=== PATIENT | female | born 1945 | race Caucasian/White ===

== ENCOUNTER 2019-11-06 06:59 | Outpatient (CLI) | payer MEDICARE, SELFPAY ==
--- NOTE | 2019-11-06 | USCV_ITS ---
Eldia Galvan Age: 74 Gender: F : 1945 Exam Date: 11/06/2019 07:17 Ordering Phys: Chelita Miller MD Technologist: Laurie Maya [place] [facility] [place]: SOB WITH LEG SWELLING BP: / HR: 93 Rhythm: Sinus Technical Quality: Very poor MEASUREMENTS (Male / Female) Normal Values 2D ECHO LV Diastolic Diameter PLAX 3.8 cm 4.2 - 5.9 / 3.9 - 5.3 cm LV Systolic Diameter PLAX 2.5 cm LV Chamber Size 3.4 cm IVS Diastolic Thickness 1.5 cm 0.6 - 1.0 / 0.6 - 0.9 cm IVS Systolic Thickness 1.7 cm LVPW Diastolic Thickness 1.5 cm 0.6 - 1.0 / 0.6 - 0.9 cm LVPW Systolic Thickness 1.9 cm RV Chamber Size 2.8 cm LVOT Diameter 2.0 cm LV Ejection Fraction 2D Teich 63.1 % LV Ejection Fraction MOD 2C 74.9 % LV Ejection Fraction 2C AL 75.5 % LA Diameter 3.8 cm LA Width 3.0 cm LA Height 4.3 cm RA Width 2.8 cm RA Height 4.2 cm Aorta at Sinotubular Diameter 2.5 cm M-MODE LV Diastolic Diameter MM 5.2 cm 4.2 - 5.9 / 3.9 - 5.3 cm LV Systolic Diameter MM 3.6 cm LV Ejection Fraction MM Teich 59.4 % IVS Diastolic Thickness MM 1.2 cm 0.6 - 1.0 / 0.6 - 0.9 cm IVS Systolic Thickness MM 1.8 cm LVPW Diastolic Thickness MM 1.3 cm 0.6 - 1.0 / 0.6 - 0.9 cm LVPW Systolic Thickness MM 1.8 cm RV Diastolic Diameter MM 1.7 cm Aortic Annulus Diameter 3.2 cm LA Ao Ratio MM 1.2 MV E Point Septal Separation 0.7 cm DOPPLER AV Peak Velocity 160.0 cm/s LVOT Peak Velocity 132.0 cm/s AV Area Cont Eq vti 3.4 cm squared AV Area Cont Eq pk 2.6 cm squared MV Area PHT 2.9 cm squared Mitral E to A Ratio 0.9 MV E' Velocity 6.0 cm/s Mitral E to MV E' Ratio 12.6 Mitral E to LV E' Lateral Ratio 12.6 Mitral E to LV E' Septal Ratio 12.6 TR Peak Velocity 177.2 cm/s TR Peak Gradient 12.6 mmHg TR Mean Velocity 137.7 cm/s TR Mean Gradient 8.5 mmHg TR Velocity Time Integral 37.9 cm TV Peak E Velocity 53.0 cm/s PV Peak Velocity 88.0 cm/s RV Acceleration Time 0.2 s RV Ejection Time 0.3 s RV AcT/ET 0.4 FINDINGS Left Ventricle Normal left ventricular cavity size. Normal left ventricular systolic function. No regional wall motion abnormalities. Left ventricular ejection fraction is estimated at 59 %. Grade II/IV diastolic dysfunction, moderately elevated filling pressures. Right Ventricle The right ventricle is normal in size and function. RVSP could not be calculated due to incomplete tricuspid regurgitation velocity profile. Right Atrium The right atrium is normal in size. Left Atrium The left atrium is normal in size. Mitral Valve Structurally normal mitral valve without significant stenosis or prolapse. There is no mitral regurgitation. Aortic Valve Moderate aortic valve calcification. No aortic valve stenosis. No aortic valve regurgitation. Tricuspid Valve Structurally normal tricuspid valve without significant stenosis or regurgitation. Pulmonic Valve Structurally normal pulmonic valve without significant stenosis. There is no pulmonic regurgitation. Pericardium Normal pericardium without effusion. Aorta Normal ascending aorta dimension. CONCLUSIONS 1-Normal left ventricular cavity size. Normal left ventricular systolic function. No regional wall motion abnormalities. Left ventricular ejection fraction is estimated at 59 %. Grade II/IV diastolic dysfunction, moderately elevated filling pressures. 2-There is no pericardial effusion. 3-No significant valve abnormalities. 4-The right ventricle is normal in size and function. RVSP could not be calculated due to incomplete tricuspid regurgitation velocity profile. 5-No significant change since the prior echocardiogram study of 06/11/2016. Dolores Miller MD (Electronically Signed) Final Date: 06 November 2019 20:37 S
== END 2019-11-06 07:00 | disposition home or self-care (01) ==
LOC: US 07:00
PROVIDERS: PCP Internal Medicine; Visit Provider Internal Medicine
DX: R06.00 Dyspnea, unspecified (principal); I51.81 Takotsubo syndrome
CPT/HCPCS: 93306

== ENCOUNTER 2019-11-29 15:16 | Outpatient (CLI) | payer MEDICARE, SELFPAY ==
--- NOTE | 2019-11-29 15:26 | XR_ITS ---
WS: [id number] EXAM: Chest: PA and lateral DATE OF EXAMINATION: 11/29/2019, 1534 hours COMPARISON: Chest x-ray from 02/07/2018 HISTORY: Patient is 74 years old with atraumatic chest pain, shortness of breath and slight cough. FINDINGS: The heart size is normal. The mediastinal contours are normal. Pulmonary vascularity is within norm al limits. Chronic lung changes are demonstrated. Lungs are clear of consolidation. No effusion, or p neumothorax. Bone density is slightly decreased. Scattered degenerative changes are seen in the spin e. Progressive collapse of the disc space in the mid thoracic spine has occurred in the interim. XR/XR chest 2V* [id number] IMPRESSION: Chronic lung changes. No acute pulmonary disease. Progressive collapse of the disc space in the mid to lower thoracic spine.
== END 2019-11-29 15:17 | disposition home or self-care (01) ==
LOC: RAD 15:19
PROVIDERS: PCP Internal Medicine; Visit Provider Nurse Practitioner Family
DX: R06.00 Dyspnea, unspecified (principal); R07.9 Chest pain, unspecified; R06.02 Shortness of breath; R05 Cough
CPT/HCPCS: 71046

== ENCOUNTER 2019-11-30 13:10 | Outpatient (CLI) | payer MEDICARE, SELFPAY ==
--- NOTE | 2019-11-30 13:18 | MM_ITS ---
WS: [id number] BILATERAL SCREENING DIGITAL MAMMOGRAM WITH CAD HISTORY: SCREEN COMPARISON: 11/02/2018 and 10/27/2017 Bilateral CC and MLO views submitted. Computer aided detection analyzed. Breast composition: There are scattered areas of fibroglandular density. No suspicious masses, microc alcifications or architectural distortion. 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 MM/[place] [id number] IMPRESSION: BI-RADS: 2-Benign FOLLOW UP: 1 Year Follow-up
== END 2019-11-30 13:11 | disposition home or self-care (01) ==
PROVIDERS: PCP Internal Medicine; Visit Provider Internal Medicine
DX: Z12.31 Encounter for screening mammogram for malignant neoplasm of breast (principal)
CPT/HCPCS: 77067

== ENCOUNTER → 2019-12-15 16:40 | Outpatient (BNVA) | payer MEDICARE, SELFPAY | PROVIDERS: PCP Internal Medicine; Visit Provider Nurse Practitioner Family | DX: Z11.59 Encounter for screening for other viral diseases (principal) | CPT/HCPCS: 87635 ==

== ENCOUNTER 2019-12-18 15:48 | Outpatient (CLI) | payer MEDICARE, SELFPAY ==
--- NOTE | 2019-12-18 16:11 | XR_ITS ---
WS: [id number] Bone mineral density performed on a [employer], 12/18/2019 Clinical data: ASYMPTOMATIC POSTMENOPAUSAL STATUS Findings: The first 4 lumbar vertebral bodies demonstrated the bone mineral density of 1.347 g/cm2 for a young adult T score of 1.4. Measurement of the left radius and ulna reveals a bone mineral density of 0.915 g/sq cm with a young adult T score of 0.4. XR/XR DEXA axial skeleton* [id number] Impression: 1. Normal bone mineral density of the lumbar spine. 2. Normal bone mineral density of the left radius and ulna.
== END 2019-12-18 15:49 | disposition home or self-care (01) ==
LOC: RADWPI 15:53
PROVIDERS: PCP Internal Medicine; Visit Provider Internal Medicine
DX: Z78.0 Asymptomatic menopausal state (principal)
CPT/HCPCS: 77080

== ENCOUNTER 2019-12-20 06:57 | Outpatient (CLI) | payer MEDICARE, SELFPAY ==
--- NOTE | 2019-12-20 07:42 | PFTS_ITS ---
Date of Study:12/20/19 Date of Dictation: MECHANICS: Forced vital capacity (FVC) is . Forced expiratory volume in one second (FEV1) is . FEV1/FVC is . FLOW VOLUME LOOP: . LUNG VOLUMES: Total lung capacity (TLC) is . Residual volume (RV) is . DIFFUSING CAPACITY FOR CARBON MONOXIDE: . INTERPRETATION: The pulmonary function tests are . mechanics and lung volumes. Gas exchange (DLCO) is . MTDD
--- NOTE | 2019-12-20 09:53 | PFTS_ITS ---
Date of Study:12/20/19 Date of Dictation: 12/21/2019 MECHANICS: Forced vital capacity (FVC) is Reduced Forced expiratory volume in one second (FEV1) is reduced FEV1/FVC is normal No significant bronchodilator response FLOW VOLUME LOOP: Normal . LUNG VOLUMES: Not measured DIFFUSING CAPACITY FOR CARBON MONOXIDE: Not measured . INTERPRETATION: The pulmonary function tests are consistent with restrictive pattern. MTDD
== END 2019-12-20 06:58 | disposition home or self-care (01) ==
PROVIDERS: PCP Internal Medicine; Visit Provider Nurse Practitioner Family
DX: R06.00 Dyspnea, unspecified (principal)
CPT/HCPCS: 94060; J7611

== ENCOUNTER 2021-07-17 06:01 | Outpatient (CLI) | payer MEDICARE, SELFPAY ==
[2021-07-17 06:19] LABS: Basophils % 0.4 %; Eosinophils # 0.2 10^3/uL (0.0-0.8); Eosinophils % 2.3 %; Hematocrit 40.2 % (37.0-47.0); Lymphocytes # 2.9 10^3/uL (0.8-4.8); Lymphocytes % 34.5 %; Mean Corpuscular HGB Conc 32.3 g/dL (30.0-36.0); Mean Corpuscular Hemoglobin 29.5 pg (28.0-34.0); Mean Corpuscular Volume 91.4 fl (81-99); Mean Platelet Volume 9.7 fL (7.4-10.4); Monocytes # 0.6 10^3/uL (0.2-0.9); Monocytes % 7.1 %; Neutrophils # 4.61 10^3/uL (1.8-7.7); Neutrophils % 55.1 %; Nucleated Red Blood Cells % 0 %; Platelet Count 331 10^3/cmm (130-400); Red Cell Distribution Width 12.4 % (12.1-15.1); White Blood Count 8.4 10^3/uL (4.0-10.0)
== END 2021-07-17 06:02 | disposition home or self-care (01) ==
PROVIDERS: PCP Internal Medicine; Visit Provider Internal Medicine
DX: Z79.899 Other long term (current) drug therapy (principal)
CPT/HCPCS: 85025

== ENCOUNTER 2022-03-22 03:44 | Emergency (ER) | payer MEDICARE, SELFPAY ==
[2022-03-22 03:48] VITALS: BMI 34.7
[2022-03-22 04:01] VITALS: BP 133/82; PULSE 67; RESP 16; TEMP 37.1; O2SAT 95
--- NOTE | 2022-03-22 05:38 | XRR_ITS ---
PROCEDURE INFORMATION: Exam: XR Lumbosacral Spine Exam date and time: 03/22/2022 5:51 AM Age: 76 years old Clinical indication: Injury or trauma; Fall; Blunt trauma (contusions or hematomas); Additional info: Fall back pain TECHNIQUE: Imaging protocol: Radiologic exam of the lumbosacral spine. Views: 2 or 3 views. COMPARISON: CR XR hip LT 2-3V wo/w pel* [id number] 12/30/2018 8:38 AM FINDINGS: Bones/joints: The lumbar spine maintains a normal lordotic curvature. Mild grade 1 anterolisthesis of L4 on L5. The vertebral bodies maintain normal height. Mild mid and posterior superior endplate deformity at L3, may be degenerative. The intervertebral discs maintain normal height. Lower lumbar facet arthropathy. Minimal anterior osteophyte formation noted. Soft tissues: Prominent atherosclerotic disease. XR/XR lumbar spine 2-3V* [id number] IMPRESSION: 1. Mild mid and posterior superior endplate deformity at L3, may be degenerative. 2. The vertebral bodies maintain normal height.
[2022-03-22] MEDS: oxyCODONE-APAP 5-325 mg Tablet 2 TAB PO (05:43)
--- NOTE | 2022-03-22 05:50 | ED_ITS ---
HPI - Fall General: Chief Complaint: Fall Stated Complaint: FALL Time Seen by Provider: 03/22/22 04:53 Source: patient History of Present Illness: 76-year-old assisted patient who fell 1 week ago. She injured her low back/upper sacral area. She has been experiencing pain in that area that radiates down her left thigh. no numbness to the groin, no sudden change in bowel or bladder function. complaint: fall Onset (ago): day(s) Fall from: standing Fall witnessed: yes, by living facility staff Place fall occurred: assisted/SNF Loss of consciousness: None Prolonged down time: no Symptoms prior to fall: none Context: tripped/slipped Location of injury: back Associated symptoms-after fall: Reports difficulty walking; Denies abdominal pain, chest pain, confusion or short of breath Review of Systems Const: Denies: fever(s) Card: Denies: chest pain Resp: Denies: dyspnea GI: Denies: abdominal pain or vomiting : Denies: flank pain or difficulty voiding (nothing new) Neuro: Reports: difficulty walking; Denies: confusion Physical Exam Const: COMMON NORMALS: no acute distress GENERAL APPEARANCE: cooperative; not ill appearing HENMT: COMMON NORMALS: normocephalic and atraumatic HEAD & SCALP: normocephalic and atraumatic Eye: COMMON NORMALS: Equal, round and reactive pupils present and EOMs intact bilaterally PUPIL: Yes Equal, round and reactive pupils present Chest: CHEST: Yes Symmetrical chest wall rise Resp: COMMON NORMALS: normal respiratory effort, No use of accessory muscles and clear to auscultation bilaterally AUSCULTATION: clear to auscultation bilaterally Cardio: COMMON NORMALS: regular rate RATE: regular rate GI: COMMON NORMALS: Normal to inspection, nondistended, normoactive bowel sounds present Back/Pelvis: LUMBAR SPINE/LOWER BACK: Yes lumbar spinal tenderness and Yes paraspinal muscle tenderness Neuro: MARCIAL COMA SCALE: document GCS findings Marcial coma scale eye opening: Spontaneous Garvin coma scale verbal response: Orientated Marcial coma scale motor response: Obey commands Marcial coma scale total score: 15 Course Vital Signs: Vital signs: Vital Signs Temperature 98.8 F 03/22/22 04:01 Pulse Rate 70 03/22/22 06:46 Respiratory Rate 16 03/22/22 06:46 Blood Pressure 145/66 03/22/22 06:46 Pulse Oximetry 92 01/08/23 06:46 Oxygen Delivery Me thod 03/22/22 04:01 MDM - Fall Medical Decision Making No acute fracture noted on xray. She has symptoms of lumbar radiculopathy on exam. She will be treated accordingly. Return for new or worsening symptoms. Lab Data Radiology Impressions Lumbar Spine X-Ray 03/22/22 05:38 IMPRESSION: 1. Mild mid and posterior superior endplate deformity at L3, may be degenerative. 2. The vertebral bodies maintain normal height. Discharge Plan Discharge Patient Disposition: Home Clinical Impression: Lumbar contusion, Acute lumbar radiculopathy Condition: Stable Prescriptions: New hydrocodone-acetaminophen 5-325 mg tablet 1 tab PO Q8H PRN (Reason: pain) Qty: 7 0RF Medrol (José Miguel) 4 mg tablets,dose pack See Rx Instructions .ROUTE .COMPLEX Qty: 21 0RF Rx Instructions: orally per package directions Discharge Orders: Discharge ED (Routine); Ordered 03/22/22 Ordered By: Fabio Vitale Referrals: Chelita Miller MD [Primary Care Provider] - 4-7 days Patient Instructions: Lumbar Radiculopathy (ED), Opioid Safety, Pain Management Activity Restrictions/Additional Instructions: See your doctor next week for follow-up. Medications as directed. Coding Level of Care Code ED Sales Representative [employer] for Radha Javed
[2022-03-22 06:46] VITALS: BP 145/66; PULSE 70; RESP 16; O2SAT 92
== END 2022-03-22 07:05 | disposition home or self-care (01) ==
PROVIDERS: Emergency Provider Emergency Medicine; PCP Internal Medicine
DX: M54.16 Radiculopathy, lumbar region (principal); S30.0XXA Contusion of lower back and pelvis, initial encounter; W19.XXXA Unspecified fall, initial encounter
CPT/HCPCS: 72100; 99283

== ENCOUNTER 2024-09-24 12:31 | Emergency (ER) | payer MEDICARE, MEDICAID, SELFPAY ==
[2024-09-24 12:48] VITALS: BP 138/75; PULSE 74; RESP 28; TEMP 36.7; O2SAT 92; BMI 37.5
[2024-09-24 13:07] VITALS: PULSE 75; RESP 24; O2SAT 93
--- NOTE | 2024-09-24 13:10 | ED_ITS ---
HPI - Altered Mental Status 2 General: Chief Complaint: Altered Mental Status Stated Complaint: ams Time Seen by Provider: 09/24/24 12:40 History of Present Illness: 79-year-old female with a history of dem entia, Insulin-dependent diabetes, hypertension, hyperlipidemia, depression, hypothyroidism, and GERD who was sent to the emergency room by ambulance from a long-term with concern for change in her mental status. She has fairly advanced dementia at baseline but today she started hallucinating. They are requesting a urinalysis. She has no complaints and is pleasant on presentation. Related Data Previous Rx's ?Medication ?Instructions ?Recorded hydrocodone 5 mg-acetaminophen 325 1 tab PO Q8H PRN pa in #7 tabs 03/22/22 mg tablet methylprednisolone 4 mg tablets in See Rx Instructions PO .COMPLEX 03/22/22 a dose pack (Medrol (José Miguel)) #21 ea cefdinir 300 mg capsule 300 mg PO BID 7 days #14 cap s 09/24/24 Allergies Allergy/AdvReac Type Severity Reaction Status Date / Time Penicillins Allergy Unknown Verified 09/24/24 13:08 Review of Systems 2 General: Reports: ROS unobtainable due to medical condition Physical Exam 2 Narrative: General: Alert, no acute distress. Skin: Warm, dry. Head: Normocephalic, atraumatic. Neck: Supple, trachea midline. Eye: Extraocular movements are intact. Ears, nose, mouth and throat: mucosa moist. Cardiovascular: Regular, Normal peripheral perfusion. Respiratory: Lungs are clear to auscultation, respirations are non-labored, breath sounds are equal, Symmetrical chest wall expansion. Gastrointestinal: Soft, Nontender, Non distended Musculoskeletal: Normal ROM, no deformity. Neurological: Alert, pleasantly confused, No focal neurological deficit observed. Psychiatric: Pleasant Course 2 Vital Signs: Vital signs: Vital Signs Temperature 98.1 F 09/24/24 12:48 Pulse Rate 91 09/24/24 14:07 Respiratory Rate 22 H 09/24/24 14:07 Blood Pressure 147/87 09/24/24 14:07 Pulse Oximetry 93 09/24/24 14:07 Oxygen Delivery Me thod Room Air 09/24/24 12:48 MDM - Altered Mental Status Medical Decision Making Medical decision making: Differential diagnosis including but not limited to and based on the above HPI, review of systems and physical exam: In this patient with altered mental status: Stroke. Hypoglycemia. Metabolic encephalopathy. Infections such as pneumonia, urinary tract infection, Covid-19, Influenza. Electrolyte abnormalities such as hypernatremia. Renal failure / uremia. Hepatic encephalopathy. Hypoxemia. Hypercapnic respiratory failure. Psychosis. Drug or alcohol intoxication. Medication overdose. Orders placed to evaluate differential diagnosis based on the above differential, HPI and physical exam Lab Review: Laboratory results were reviewed and interpreted by myself the emergency room physician. No leukocytosis. No anemia. Mild elevation BUN/creatinine 26 and 1.1. Urinalysis is positive for infection with 4+ bacteria. 21-50 whites. I reviewed the patient's medical record. 79-year-old female with a history of dementia, Insulin-dependent diabetes, hypertension, hyperlipidemia, depression, hypothyroidism, and GERD Reexamination: Patient remained stable. No increased work of breathing. No altered mental status. No focal motor deficits. Assessment and plan: Urinary tract infection Encephalopathy ? Rocephin in the emergency room - Discharged home - Discussed plan with patient. Answered any questions. - Evaluation and treatment of this problem were appropriate in the emergency setting. Lab Data 09/24/24 13:22 09/24/24 13:22 Laboratory Results WBC 8.57 10^3/uL (3.29-11.43) 09/24/24 13:22 RBC 3.96 10^6/uL (3.85-5.65) 09/24/24 13:22 Hgb 11.00 g/dL (11.27-16.99) L 09/24/24 13:22 Hct 35.6 % (36-47) L 09/24/24 13:22 MCV 89.9 fl (85-98) 09/24/24 13:22 MCH 27.8 pg (27-33) 09/24/24 13:22 MCHC 30.9 g/dL (30-55) 09/24/24 13:22 RDW 12.9 % (12.1-15.1) 09/24/24 13:22 Plt Count 323 10^3/cmm (157-399) 09/24/24 13:22 MPV 9.2 fL (7.4-10.4) 09/24/24 13:22 Neut % (Auto) 61.5 % 09/24/24 13:22 Lymph % (Auto) 27.1 % 09/24/24 13:22 [place] % (Auto) 6.9 % 09/24/24 13:22 Eos % (Auto) 3.7 % 09/24/24 13:22 Baso % (Auto) 0.4 % 09/24/24 13:22 Neut # (Auto) 5.28 10^3/uL (1.8-7.7) 09/24/24 13:22 Lymph # (Auto) 2.3 10^3/uL (0.8-4.8) 09/24/24 13:22 [place] # (Auto) 0.6 10^3/uL (0.2-0.9) 09/24/24 13:22 Eos # (Auto) 0.3 10^3/uL (0.0-0.8) 09/24/24 13:22 Baso # (Auto) 0.0 10^3/uL (0.0-0.1) 09/24/24 13:22 Nucleated RBC % (auto) 0 % 09/24/24 13:22 Nucleated RBCs # 0.0 /100WBC 09/24/24 13:22 Sodium 139 mmol/L (136-145) 09/24/24 13:22 Potassium 4.4 mmol/L (3.5-5.1) 09/24/24 13:22 Chloride 101 mmol/L (98-107) 09/24/24 13:22 Carbon Dioxide 24 mmol/L (22-29) 09/24/24 13:22 Anion Gap 18.4 (5-19) 09/24/24 13:22 BUN 26 mg/dL (8-23) H 09/24/24 13:22 Creatinine 1.1 mg/dL (0.5-0.9) H 09/24/24 13:22 GFR Calculation Not Reportable 09/24/24 13:22 Glucose 124 mg/dL (65-115) H 09/24/24 13:22 Calculated Osmolality 294 mOsm/kg (285-295) 09/24/24 13:22 Lactic Acid 2.1 mmol/L (0.5-2.2) 09/24/24 13:23 Calcium 8.9 mg/dL (8.5-10.5) 09/24/24 13:22 Total Bilirubin 0.2 mg/dL (0.15-1.2) 09/24/24 13:22 AST 14 U/L (0-32) 09/24/24 13:22 ALT 13 U/L (0-33) 09/24/24 13:22 Alkaline Phosphatase 109 U/L (35-105) H 09/24/24 13:22 Total Protein 7.3 g/dL (6.6-8.7) 09/24/24 13:22 Albumin 3.6 g/dL (3.5-5.2) 09/24/24 13:22 Globulin 3.7 g/dL (1.3-4.6) 09/24/24 13:22 Urine Color Yellow (Yellow) 09/24/24 13:50 Urine Appearance Cloudy (CLEAR) A 09/24/24 13:50 Urine pH 5.0 (5-7) 09/24/24 13:50 Ur Specific [place] 1.022 (1.005-1.030) 09/24/24 13:50 Urine Protein 1+ (Negative) A 09/24/24 13:50 Urine Glucose (UA) Negative (Normal) 09/24/24 13:50 Urine Ketones Trace (Negative) 09/24/24 13:50 Urine Blood Negative (Negative) 09/24/24 13:50 Urine Nitrate Negative (Negative) 09/24/24 13:50 Urine Bilirubin Negative (Negative) 09/24/24 13:50 Urine Urobilinogen 0.2 mg/dL (Negative) 09/24/24 13:50 Ur Leukocyte Esterase 2+ (Negative) A 09/24/24 13:50 Urine RBC 0-2 /hpf (0-2) 09/24/24 13:50 Urine WBC 21-50 /hpf (0-5) H 09/24/24 13:50 Ur Squamous Epith Cells 11-20 /hpf (0-5) H 09/24/24 13:50 Amorphous Sediment Not Reportable 09/24/24 13:50 Urine Bacteria 4+ /hpf (NONE) H 09/24/24 13:50 Hyaline Casts 2.46 /lpf 09/24/24 13:50 No radiology studies performed this visit Discharge Plan Discharge Patient Disposition: Home Clinical Impression: Urinary tract infection, Delirium due to general medical condition Condition: Stable Prescriptions: New cefdinir 300 mg capsule 300 mg PO BID 7 Days Qty: 14 0RF No Action hydrocodone-acetaminophen 5-325 mg tablet 1 tab PO Q8H PRN (Reason: pain) Qty: 7 0RF Medrol (José Miguel) 4 mg tablets,dose pack See Rx Instructions .ROUTE .COMPLEX Qty: 21 0RF Rx Instructions: orally per package directions Discharge Orders: Discharge ED (Routine); Ordered 09/24/24 Ordered By: Libertad Andres Referrals: Chelita Miller MD [Primary Care Provider, Internal Medicine] Discharge Diet: Usual diet Discharge Activity: Increase activity as tolerated Patient Instructions: Altered Mental Status (ED), Urinary Tract Infection in Older Adults (ED), Opioid Safety, Pain Management, Patient Portal & Alexandrea Instructions Activity Restrictions/Additional Instructions: Thank you for choosing [facility] for your healthcare needs today. You have been screened and evaluated and felt safe for discharge. Health conditions do change or evolve sometimes and as such it is important that you follow up with your Primary Doctor to be re checked, 3-5 days is a general good time frame for follow up. You are always welcome to return to the ED for re assessment if your symptoms are worsening or you have new concerns Print Language: Somali Coding Level of Care Code ED [employer]er for Radha Javed
--- NOTE | 2024-09-24 13:37 | PC.PHAR ---
Addendum entered by Allison Alfaro 09/24/24 14:45: Phoned at 2:30 and 2:45 to revisit med list. Original Note: Pt is from [facility]. Paperwork sent was face sheet and dnr but no med list. Phoned and left message 1:38pm
[2024-09-24 13:39] LABS: Hematocrit 35.6 % (36-47); Hemoglobin 11.00 g/dL (11.27-16.99); Mean Corpuscular HGB Conc 30.9 g/dL (30-55); Mean Corpuscular Hemoglobin 27.8 pg (27-33); Mean Corpuscular Volume 89.9 fl (85-98); Nucleated Red Blood Cells % 0 %; Platelet Count 323 10^3/cmm (157-399); Red Blood Count 3.96 10^6/uL (3.85-5.65); White Blood Count 8.57 10^3/uL (3.29-11.43)
[2024-09-24 13:51] LABS: Lactic Sepsis W/Reflex 2.1 mmol/L (0.5-2.2)
[2024-09-24 13:53] LABS: Alanine Aminotransferase 13 U/L (0-33); Albumin Level 3.6 g/dL (3.5-5.2); Alkaline Phosphatase 109 U/L (35-105); Anion Gap 18.4 (5-19); Aspartate Amino Transferase 14 U/L (0-32); Blood Urea Nitrogen 26 mg/dL (8-23); Calcium 8.9 mg/dL (8.5-10.5); Carbon Dioxide 24 mmol/L (22-29); Chloride 101 mmol/L (98-107); Creatinine Clr Calc Pharmacy 52.7042; Globulin 3.7 g/dL (1.3-4.6); Glucose 124 mg/dL (65-115); Osmolality Calculated 294 mOsm/kg (285-295); Potassium 4.4 mmol/L (3.5-5.1); Sodium 139 mmol/L (136-145); Total Protein 7.3 g/dL (6.6-8.7)
[2024-09-24 13:58] LABS: Glucose Urine UA Negative (Normal); Nitrate Urine Negative (Negative); Specific Gravity, Urine 1.022 (1.005-1.030)
[2024-09-24 14:07] VITALS: BP 147/87; PULSE 91; RESP 22; O2SAT 93
[2024-09-24 15:22] LABS: Reflex Lactate Order REFLEX LACTIC ORDERD
[2024-09-24 16:00] VITALS: BP 132/79; PULSE 85; RESP 18; O2SAT 95
[2024-09-24] MEDS: cefTRIAXone 1,000 mg SDV 1000 MG IVP (16:03)
== END 2024-09-24 16:36 | disposition home or self-care (01) ==
PROVIDERS: Emergency Provider Emergency Medicine; PCP Internal Medicine
DX: N39.0 Urinary tract infection, site not specified (principal); R41.0 Disorientation, unspecified; E11.9 Type 2 diabetes mellitus without complications; E78.5 Hyperlipidemia, unspecified; I10 Essential (primary) hypertension
CPT/HCPCS: 36415; 36416; 80053; 81001; 82962; 83605; 85025; 87040; 87150; 87205; 96374; 99284; J0696

== ENCOUNTER 2024-11-11 10:30 | Emergency (ER) | payer MEDICARE, MEDICAID, SELFPAY ==
[2024-11-11 10:31] VITALS: BP 120/67; PULSE 73; RESP 17; TEMP 36.7; O2SAT 95; BMI 40.3
--- NOTE | 2024-11-11 12:57 | W.ED.EYEPROB ---
HPI - Eye Problem General: Chief complaint: Eye Problems Stated complaint: right eye redness Time Seen by Provider: 11/11/24 10:32 Source: patient and family Mode of arrival: wheelchair Limitations: altered mental status (Chronic dementia) History of Present Illness: Patient arrived, has chronic dementia very pleasant but talkative and confused. Sister is with her and provides most of the history. She lives in a alf and reportedly the nurse called them as the right eye suddenly became more inflamed this morning. Patient reportedly had complained of some pain but has not complained of any eye pain at this moment. Vision has remained reported as blurry but patient can still have fair acuity. Concerns the right eye. Related Data Home Medications ?Medication ?Instructions ?Recorded ?Confirmed acetaminophen 325 mg tablet 325 mg PO BID 09/24/24 11/11/24 (Tylenol) acetaminophen 325 mg tablet 650 mg PO Q4H PRN Pain 09/24/24 11/11/24 (Tylenol) bisacodyl 10 mg rectal suppository 10 mg DE DAILY PRN Constipation 09/24/24 11/11/24 (Dulcolax (bisacodyl)) brimonidine 0.1 % eye drops 1 drp ophthalmic (eye) Q8H 09/24/24 11/11/24 (Alphagan P) Held on 11/11/24. Instructions: Resume on 11/14/24. clopidogrel 75 mg tablet (Plavix) 75 mg PO DAILY 09/24/24 11/11/24 dextran 70-hypromellose eye drops 1 drp ophthalmic (eye) QID 09/24/24 11/11/24 in a dropperette (Artificial Tears (PF) drops in a dropperette) hydrocodone 5 mg-acetaminophen 325 1 tab PO .Q4-6H PRN pain 09/24/24 11/11/24 mg tablet insulin glargine 100 unit/mL (3 75 unit SUBCUT BEDTIME 09/24/24 11/11/24 mL) subcutaneous pen (Lantus Solostar U-100 Insulin) insulin lispro 100 unit/mL 28 unit SUBCUT TID 09/24/24 11/11/24 subcutaneous solution ketorolac (PF) 0.45 % eye drops in 1 drp ophthalmic (eye) QID 09/24/24 11/11/24 a dropperette latanoprost (PF) 0.005 % eye drops 1 drp ophthalmic (eye) BEDTIME 09/24/24 11/11/24 in a dropperette levothyroxine 50 mcg tablet 50 mcg PO DAILY 09/24/24 11/11/24 (Euthyrox) magnesium hydroxide 400 mg/5 mL 30 ml PO DAILY PRN Constipation 09/24/24 11/11/24 oral suspension (Milk of Magnesia) nystatin 100,000 unit/gram topical See Rx Instructions .Route .COMPLEX 09/24/24 11/11/24 powder ondansetron HCl 4 mg tablet 4 mg PO Q4H PRN Nausea 09/24/24 11/11/24 pantoprazole 40 mg tablet,delayed 40 mg PO DAILY 09/24/24 11/11/24 release phenylephrine 0.25 %-pramoxine 1 1 applic DE BID PRN Hemorrhoids 09/24/24 11/11/24 %-glycerin-wh.petrolatum rectal cream (Preparation H Maximum Strength) polyethylene glycol 3350 17 17 g PO DAILY 09/24/24 11/11/24 gram/dose oral powder (Miralax) sertraline 50 mg tablet (Zoloft) 75 mg PO BEDTIME 09/24/24 11/11/24 sodium chloride 1,000 mg soluble 1,000 mg PO DAILY 09/24/24 11/11/24 tablet erythromycin 5 mg/gram (0.5 %) eye 1 applic ophthalmic (eye) 5XD 11/11/24 11/11/24 ointment (3.5 gram tube) Previous Rx's ?Medication ?Instructions ?Recorded prednisolone acetate 1 % eye 1 drp ophthalmic (eye) Q2H 48 11/11/24 drops,suspension (Pred Forte) hours #5 mL Allergies Allergy/AdvReac Type Severity Reaction Status Date / Time Penicillins Allergy Unknown Verified 09/24/24 13:08 Review of Systems General: Reports: 10 or more systems reviewed and unremarkable except in HPI and below Physical Exam Const: COMMON NORMALS: no acute distress, healthy appearing, alert and well nourished GENERAL APPEARANCE: well kempt and well developed HENMT: COMMON NORMALS: normocephalic, atraumatic, external ears normal and moist oral mucous membranes HEAD & SCALP: normocephalic and atraumatic EXTERNAL EAR: Yes external ears normal Eye: COMMON NORMALS: Equal, round and reactive pupils present, EOMs intact bilaterally and conjunctivae normal CONJUNCTIVA: Yes conjunctivae normal PUPIL: Yes Equal, round and reactive pupils present OTHER: IOP of 18 for right eye Neck/C-Spine: COMMON NORMALS: full ROM, no lymphadenopathy and supple Chest: CHEST: Yes Symmetrical chest wall rise and No Surgical scars present (Chest) Resp: COMMON NORMALS: normal respiratory effort, No retractions, No use of accessory muscles and clear to auscultation bilaterally AUSCULTATION: clear to auscultation bilaterally Cardio: COMMON NORMALS: regular rate and regular rhythm RATE: regular rate RHYTHM: regular rhythm PERIPHERAL PULSES: other (Radial pulses 2+ and symmetric) Neuro: SENSORIUM/ORIENTATION: Yes alert Psych: APPEARANCE: Yes well kempt Skin: COMMON NORMALS: no rashes or lesions noted, no wounds, turgor normal and no jaundice GENERAL SKIN EXAM: no rashes or lesions noted and turgor normal Course ED course: Consultants Rex nash with [facility] has come in and examined the patient with slit-lamp exam. Reports no hypopyon, low concern for endophthalmitis at this time. Strict return precautions have been given to the patient and family member. And he will see her in the clinic tomorrow at 9 AM. Vital Signs: Vital signs: Vital Signs Temperature 98.0 F 11/11/24 10:31 Pulse Rate 73 11/11/24 10:31 Respiratory Rate 17 11/11/24 10:31 Blood Pressure 120/67 11/11/24 10:31 Pulse Oximetry 95 11/11/24 10:31 Oxygen Delivery Me thod Room Air 11/11/24 10:31 MDM - Eye Problem Medical Decision Making Current diagnosis of uveitis with still some possible concern for endophthalmitis. The patient's pain is currently low. Has been seen by ophthalmology here in the ER. Patient will be seen again in the clinic with ophthalmology in the morning. We are increasing the prednisone drops and dropping the bromidine drops for the weekend. No radiology studies performed this visit Discharge Plan Discharge Patient Disposition: Home Clinical Impression: Uveitis Condition: Stable Prescriptions: New prednisolone acetate [Pred Forte] 1 % drops,suspension 1 drp ophthalmic (eye) Q2H 2 Days Qty: 5 0RF Rx Instructions: while awake Continued erythromycin 5 mg/gram (0.5 %) ointment 1 applic ophthalmic (eye) 5XD acetaminophen [Tylenol] 325 mg Tablet 325 mg PO BID acetaminophen [Tylenol] 325 mg Tablet 650 mg PO Q4H PRN (Reason: Pain) ondansetron HCl [Zofran] 4 mg Tablet 4 mg PO Q4H PRN (Reason: Nausea) clopidogrel [Plavix] 75 mg Tablet 75 mg PO DAILY magnesium hydroxide [Milk of Magnesia] 400 mg/5 mL Suspension 30 ml PO DAILY PRN (Reason: Constipation) levothyroxine [Euthyrox] 50 mcg Tablet 50 mcg PO DAILY bisacodyl [Dulcolax (bisacodyl)] 10 mg Suppository 10 mg DE DAILY PRN (Reason: Constipation) pantoprazole 40 mg Tablet,Delayed Release (Dr/Ec) 40 mg PO DAILY nystatin 100,000 unit/gram Powder See Rx Instructions .ROUTE .COMPLEX Rx Instructions: 1 applic topically to bilateral groin areas for redness until healed. insulin lispro 100 unit/mL Solution 28 unit SUBCUT TID polyethylene glycol 3350 [Miralax] 17 gram/dose Powder 17 g PO DAILY sertraline [Zoloft] 50 mg Tablet 75 mg PO BEDTIME Artificial Tears (PF) Dropperette 1 drp OPHTHALMIC (EYE) QID sodium chloride 1,000 mg Tablet,Soluble 1,000 mg PO DAILY Preparation H Maximum Strength 0.25-1 % Cream 1 applic DE BID PRN (Reason: Hemorrhoids) insulin glargine [Lantus Solostar U-100 Insulin] 100 unit/mL (3 mL) Insulin Pen 75 unit SUBCUT BEDTIME ketorolac (PF) 0.45 % Dropperette 1 drp ophthalmic (eye) QID latanoprost (PF) 0.005 % Dropperette 1 drp ophthalmic (eye) BEDTIME hydrocodone-acetaminophen 5-325 mg tablet 1 tab PO .Q4-6H PRN (Reason: pain) Held brimonidine [Alphagan P] 0.1 % Drops 1 drp OPHTHALMIC (EYE) Q8H Hold Instructions: Resume on 11/14/24. Discontinued prednisolone acetate (PF) 1 % Drops,Suspension 1 drp ophthalmic (eye) BID Discharge Orders: Discharge ED (Routine); Ordered 11/11/24 Ordered By: Reginald Barboza Referrals: Chelita Miller MD [Primary Care Provider, Internal Medicine] Patient Instructions: Patient Portal & Alexandrea Instructions Activity Restrictions/Additional Instructions: We are going to hold the bloating drops for the weekend we can restart them on Wednesday. We are going to change the dose of the prednisone drops to every 2 hours for the next 48 hours and then can go back to following the current prescription of prednisolone eyedrops 4 times daily after that until changed by ophthalmology. Follow-up with ophthalmology tomorrow morning as discussed with MENDOZA Castano Print Language: Bahraini Coding Level of Care Code ED Technology Methodology Consultant for Radha Javed
== END 2024-11-11 13:49 | disposition home or self-care (01) ==
PROVIDERS: Emergency Provider Emergency Medicine; PCP Internal Medicine
DX: H20.9 Unspecified iridocyclitis (principal); Z79.4 Long term (current) use of insulin
CPT/HCPCS: 99283

== ENCOUNTER 2024-12-17 13:04 | Emergency (ER) | payer MEDICARE, MEDICAID, SELFPAY ==
[2024-12-17 13:04] VITALS: BP 129/63; PULSE 87; RESP 19; TEMP 37.2; O2SAT 94; BMI 39.4
[2024-12-17 13:24] VITALS: BP 104/44; PULSE 85; O2SAT 97
--- NOTE | 2024-12-17 13:35 | W.ED.RECABL ---
HPI - Recheck/Abnormal Lab/Rx General: Chief Complaint: Recheck/Abnormal Lab/Rx Stated Complaint: hypoglycemia Time Seen by Provider: 12/17/24 13:05 History of Present Illness: Selected Entries 12/17/24 13:04 ED Triage Comment Per EMS they were called for hypogly cemia to [facility], pt 's sugar was c hecked before lunc h it was 101, IA s taff state orders read if BS is over 85 give insulin, gave 30 units of i nsulin they then c hecked sugar after lunch and it was 34, gave 8 mg of g lucagon at [place], she also had snickers . EMS got a FSBS 5 1, gave 30 mg of o ral glucose FSBS w as still 51. Pt is not normally on o xygen, RA sats 90% placed pt on 2 li ters of O2. Pt has been diaphoretic and weak. BS at tr iage 64. Patient presents to ED via EMS. As noted above, she has DM, dementia, CVA, vascular dementia, presenting from jail after she received her short acting insulin, insulin lispro, 30 units, with her blood sugar 101. Patient cannot tell me what she had for lunch, or how much she had to eat. Patient cannot tell me anything other than she is a diabetic. MAP of blood pressure when I am in the room is 70. Will give D5 bolus, and obtain routine labs she is following her blood pressure okay will give good you Related Data Home Medications ?Medication ?Instructions ?Recorded ?Confirmed acetaminophen 325 mg tablet 650 mg PO BID 09/24/24 12/17/24 (Tylenol) acetaminophen 325 mg tablet 650 mg PO Q4H PRN Pain 09/24/24 12/17/24 (Tylenol) bisacodyl 10 mg rectal suppository 10 mg MS DAILY PRN Constipation 09/24/24 12/17/24 (Dulcolax (bisacodyl)) brimonidine 0.1 % eye drops 1 drp ophthalmic (eye) BID 09/24/24 12/17/24 (Alphagan P) Held on 11/11/24. Instructions: Resume on 11/14/24. clopidogrel 75 mg tablet (Plavix) 75 mg PO DAILY 09/24/24 12/17/24 hydrocodone 5 mg-acetaminophen 325 1 tab PO .Q4-6H PRN pain 09/24/24 12/17/24 mg tablet insulin glargine 100 unit/mL (3 72 unit SUBCUT BEDTIME 09/24/24 12/17/24 mL) subcutaneous pen (Lantus Solostar U-100 Insulin) insulin lispro 100 unit/mL 30 unit SUBCUT TID 09/24/24 12/17/24 subcutaneous solution latanoprost (PF) 0.005 % eye drops 1 drp ophthalmic (eye) BEDTIME 09/24/24 12/17/24 in a dropperette levothyroxine 50 mcg tablet 50 mcg PO QAM 09/24/24 12/17/24 (Euthyrox) magnesium hydroxide 400 mg/5 mL 30 ml PO DAILY PRN Constipation 09/24/24 12/17/24 oral suspension (Milk of Magnesia) ondansetron HCl 4 mg tablet 4 mg PO Q4H PRN Nausea 09/24/24 12/17/24 pantoprazole 40 mg tablet,delayed 40 mg PO DAILY 09/24/24 12/17/24 release phenylephrine 0.25 %-pramoxine 1 1 applic MS BID PRN Hemorrhoids 09/24/24 12/17/24 %-glycerin-wh.petrolatum rectal cream (Preparation H Maximum Strength) polyethylene glycol 3350 17 17 g PO DAILY 09/24/24 12/17/24 gram/dose oral powder (Miralax) sertraline 50 mg tablet (Zoloft) 75 mg PO BEDTIME 09/24/24 12/17/24 sodium chloride 1,000 mg soluble 1,000 mg PO DAILY 09/24/24 12/17/24 tablet nitroglycerin 0.4 mg sublingual 0.4 mg sublingual Q5M PRN Chest 12/17/24 12/17/24 tablet (Nitrostat) Pain prednisolone acetate 1 % eye 1 drp ophthalmic (eye) QID 12/17/24 12/17/24 drops,suspension Allergies Allergy/AdvReac Type Severity Reaction Status Date / Time Penicillins Allergy Unknown Verified 09/24/24 13:08 Review of Systems General: Reports: 10 or more systems reviewed and unremarkable except in HPI and below and ROS unobtainable due to medical condition (Advancing dementia in jail) Narrative: Patient is essentially a known historian. History as per jail/EMS Physical Exam Const: COMMON NORMALS: no acute distress, healthy appearing, alert and well nourished GENERAL APPEARANCE: well kempt and well developed HENMT: COMMON NORMALS: normocephalic, atraumatic, external ears normal and moist oral mucous membranes HEAD & SCALP: normocephalic and atraumatic EXTERNAL EAR: Yes external ears normal Eye: COMMON NORMALS: Equal, round and reactive pupils present, EOMs intact bilaterally and conjunctivae normal CONJUNCTIVA: Yes conjunctivae normal PUPIL: Yes Equal, round and reactive pupils present OTHER: IOP of 18 for right eye Neck/C-Spine: COMMON NORMALS: full ROM, no lymphadenopathy and supple Chest: CHEST: Yes Symmetrical chest wall rise and No Surgical scars present (Chest) Resp: COMMON NORMALS: normal respiratory effort, No retractions and No use of accessory muscles AUSCULTATION: bronchial breath sounds Cardio: COMMON NORMALS: regular rate and regular rhythm RATE: regular rate RHYTHM: regular rhythm PERIPHERAL PULSES: other (Radial pulses 2+ and symmetric) GI: COMMON NORMALS: Normal to inspection, nondistended, normoactive bowel sounds present and Soft to palpation PALPATION: Yes Soft to palpation : COMMON NORMALS: Yes no CVA tenderness BLADDER/KIDNEY EXAM: Yes no CVA tenderness Back/Pelvis: COMMON NORMALS: no CVA tenderness Extremity: COMMON NORMALS: normal to inspection, full ROM and capillary refill normal Neuro: SENSORIUM/ORIENTATION: Yes alert Psych: APPEARANCE: Yes well kempt Skin: COMMON NORMALS: no rashes or lesions noted, no wounds, turgor normal and no jaundice GENERAL SKIN EXAM: no rashes or lesions noted and turgor normal Course Reevaluation(s): Reevaluation #1: Patient is improved, blood glucose is over 100, she does not have any complaints, oxygen saturation greater 95% on room air. Vital Signs: Vital signs: Vital Signs Temperature 98.9 F 12/17/24 13:04 Pulse Rate 76 12/17/24 15:45 Respiratory Rate 19 H 12/17/24 13:04 Blood Pressure 162/78 12/17/24 15:45 Pulse Oximetry 95 12/17/24 15:45 Oxygen Delivery Me thod Room Air 12/17/24 15:19 Oxygen Flow Rate 2 12/17/24 13:52 MDM - Recheck/Abnormal Lab/Rx Medical Decision Making Patient 79-year-old female with advanced dementia, vascular dementia, presented to the ED via EMS after hypoglycemia. Patient received 30 units before meal with blood glucose of 101. Blood glucose was 32, and jail tried orange juice, and multiple modalities. Blood glucose here on arrival was 62. She had a rice crispy treat, orange juice. She is feeling better. Blood glucose is in the high 100s. She will be discharged home with her oxygen saturation 95% on room air on reevaluation. She does not have any concerns, nontoxic well-appearing elderly female. Lab Data 12/17/24 13:15 12/17/24 13:15 Radiology Impressions Chest X-Ray 12/17/24 13:56 IMPRESSION: 1. No acute findings 2. Chronic lung changes are noted Laboratory Results WBC 9.72 10^3/uL (3.29-11.43) 12/17/24 13:15 RBC 4.35 10^6/uL (3.85-5.65) 12/17/24 13:15 Hgb 11.80 g/dL (11.27-16.99) 12/17/24 13:15 Hct 38.5 % (36-47) 12/17/24 13:15 MCV 88.5 fl (85-98) 12/17/24 13:15 MCH 27.1 pg (27-33) 12/17/24 13:15 MCHC 30.6 g/dL (30-55) 12/17/24 13:15 RDW 13.3 % (12.1-15.1) 12/17/24 13:15 Plt Count 391 10^3/cmm (157-399) 12/17/24 13:15 MPV 9.0 fL (7.4-10.4) 12/17/24 13:15 Neut % (Auto) 54.8 % 12/17/24 13:15 Lymph % (Auto) 35.3 % 12/17/24 13:15 [place] % (Auto) 7.0 % 12/17/24 13:15 Eos % (Auto) 2.3 % 12/17/24 13:15 Baso % (Auto) 0.4 % 12/17/24 13:15 Neut # (Auto) 5.33 10^3/uL (1.8-7.7) 12/17/24 13:15 Lymph # (Auto) 3.4 10^3/uL (0.8-4.8) 12/17/24 13:15 [place] # (Auto) 0.7 10^3/uL (0.2-0.9) 12/17/24 13:15 Eos # (Auto) 0.2 10^3/uL (0.0-0.8) 12/17/24 13:15 Baso # (Auto) 0.0 10^3/uL (0.0-0.1) 12/17/24 13:15 Nucleated RBC % (auto) 0 % 12/17/24 13:15 Nucleated RBCs # 0.0 /100WBC 12/17/24 13:15 Sodium 141 mmol/L (136-145) 12/17/24 13:15 Potassium 3.6 mmol/L (3.5-5.1) 12/17/24 13:15 Chloride 102 mmol/L (98-107) 12/17/24 13:15 Carbon Dioxide 25 mmol/L (22-29) 12/17/24 13:15 Anion Gap 17.6 (5-19) 12/17/24 13:15 BUN 24 mg/dL (8-23) H 12/17/24 13:15 Creatinine 1.0 mg/dL (0.5-0.9) H 12/17/24 13:15 GFR Calculation Not Reportable 12/17/24 13:15 Glucose 68 mg/dL (65-115) 12/17/24 13:15 POC Glucose 199 mg/dL (70-110) H 12/17/24 15:23 Calculated Osmolality 294 mOsm/kg (285-295) 12/17/24 13:15 Calcium 9.2 mg/dL (8.5-10.5) 12/17/24 13:15 Total Bilirubin 0.2 mg/dL (0.15-1.2) 12/17/24 13:15 AST 16 U/L (0-32) 12/17/24 13:15 ALT 15 U/L (0-33) 12/17/24 13:15 Alkaline Phosphatase 122 U/L (35-105) H 12/17/24 13:15 Total Protein 8.2 g/dL (6.6-8.7) 12/17/24 13:15 Albumin 4.2 g/dL (3.5-5.2) 12/17/24 13:15 Globulin 4.0 g/dL (1.3-4.6) 12/17/24 13:15 Influenza A (PCR) Negative (Negative) 12/17/24 14:06 Influenza Type B (PCR) Negative (Negative) 12/17/24 14:06 RSV (PCR) Negative (Negative) 12/17/24 14:06 SARS-CoV-2 (PCR) Negative (Negative) 12/17/24 14:06 XR interpretation done by ED provider, pending radiology final review EKG Data EKG 1: Interpretation: Normal sinus rhythm, left axis, no ST segment elevation Discharge Plan Discharge Patient Disposition: Home Clinical Impression: Hypoglycemia Hypotension Qualifiers: Hypotension type: orthostatic hypotension Qualified Code(s): I95.1 - Orthostatic hypotension Condition: Stable Prescriptions: No Action prednisolone acetate 1 % drops,suspension 1 drp ophthalmic (eye) QID nitroglycerin [Nitrostat] 0.4 mg Tablet, Sublingual 0.4 mg SUBLINGUAL Q5M PRN (Reason: Chest Pain) Rx Instructions: do not exceed 3 doses per episode acetaminophen [Tylenol] 325 mg Tablet 650 mg PO BID acetaminophen [Tylenol] 325 mg Tablet 650 mg PO Q4H PRN (Reason: Pain) ondansetron HCl 4 mg Tablet 4 mg PO Q4H PRN (Reason: Nausea) clopidogrel [Plavix] 75 mg Tablet 75 mg PO DAILY magnesium hydroxide [Milk of Magnesia] 400 mg/5 mL Suspension 30 ml PO DAILY PRN (Reason: Constipation) levothyroxine [Euthyrox] 50 mcg Tablet 50 mcg PO QAM bisacodyl [Dulcolax (bisacodyl)] 10 mg Suppository 10 mg MS DAILY PRN (Reason: Constipation) pantoprazole 40 mg Tablet,Delayed Release (Dr/Ec) 40 mg PO DAILY insulin lispro 100 unit/mL Solution 30 unit SUBCUT TID polyethylene glycol 3350 [Miralax] 17 gram/dose Powder 17 g PO DAILY sertraline [Zoloft] 50 mg Tablet 75 mg PO BEDTIME brimonidine [Alphagan P] 0.1 % Drops 1 drp OPHTHALMIC (EYE) BID sodium chloride 1,000 mg Tablet,Soluble 1,000 mg PO DAILY Preparation H Maximum Strength 0.25-1 % Cream 1 applic MS BID PRN (Reason: Hemorrhoids) insulin glargine [Lantus Solostar U-100 Insulin] 100 unit/mL (3 mL) Insulin Pen 72 unit SUBCUT BEDTIME latanoprost (PF) 0.005 % Dropperette 1 drp ophthalmic (eye) BEDTIME hydrocodone-acetaminophen 5-325 mg tablet 1 tab PO .Q4-6H PRN (Reason: pain) Discharge Orders: Discharge ED (Routine); Ordered 12/17/24 Ordered By: Alicia Acevedo Referrals: Chelita Miller MD [Primary Care Provider, Internal Medicine] Discharge Diet: Usual diet Discharge Activity: Resume usual activity Patient Instructions: Hypoglycemia, Patient Portal & Alexandrea Instructions Activity Restrictions/Additional Instructions: - Hold insulin lispro unless blood glucoses less than 150 For blood glucose 151?180, give 10 units with meal For blood glucose 181?200, give 15 units with meal For blood glucose 201?250, give 20 units with meal For blood glucose 251?300, give 25 units with meal For blood glucose 301?350, give 30 units with meal For blood glucose greater than 351, call physician Return to ED with low blood glucose or low oxygen saturation Print Language: Hungarian Coding Level of Care Code ED Collections Specialist for Radha Javed
--- NOTE | 2024-12-17 13:38 | ECG_ITS ---
[facility] Test Date: 2024-12-17 Pat Name: Elida Galvan Department: Room: Gender: Female M[employer] Developer: : 1945 Requested By: Alicia Acevedo Order Number: [id number] Brandon MD: Jessika Barahona M.D. Measurements Intervals [place] Rate: 80 P: 94 SD: 178 QRS: -10 QRSD: 99 T: 1 QT: 390 QTc: 452 Interpretive Statements SINUS RHYTHM Non diagnostic T wave changes Compared to ECG 02/21/2018 10:28:36 Sinus bradycardia no longer present Electronically Signed On 12-17-2024 21:23:36 CDT by Jessika Barahona M.D. [email or web address] [id number]
[2024-12-17 13:43] LABS: Hematocrit 38.5 % (36-47); Hemoglobin 11.80 g/dL (11.27-16.99); Mean Corpuscular HGB Conc 30.6 g/dL (30-55); Mean Corpuscular Hemoglobin 27.1 pg (27-33); Mean Corpuscular Volume 88.5 fl (85-98); Nucleated Red Blood Cells % 0 %; Platelet Count 391 10^3/cmm (157-399); Red Blood Count 4.35 10^6/uL (3.85-5.65); White Blood Count 9.72 10^3/uL (3.29-11.43)
[2024-12-17] MEDS: dextrose 5%-ns 0.9% 1,000 mL Bag 500 ML IV (13:47)
[2024-12-17 13:52] VITALS: BP 126/73; PULSE 79; O2SAT 98
[2024-12-17 13:55] LABS: Alanine Aminotransferase 15 U/L (0-33); Albumin Level 4.2 g/dL (3.5-5.2); Alkaline Phosphatase 122 U/L (35-105); Anion Gap 17.6 (5-19); Aspartate Amino Transferase 16 U/L (0-32); Blood Urea Nitrogen 24 mg/dL (8-23); Calcium 9.2 mg/dL (8.5-10.5); Carbon Dioxide 25 mmol/L (22-29); Chloride 102 mmol/L (98-107); Creatinine Clr Calc Pharmacy 57.5037; Globulin 4.0 g/dL (1.3-4.6); Glucose 68 mg/dL (65-115); Osmolality Calculated 294 mOsm/kg (285-295); Potassium 3.6 mmol/L (3.5-5.1); Sodium 141 mmol/L (136-145); Total Protein 8.2 g/dL (6.6-8.7)
--- NOTE | 2024-12-17 13:56 | XRR_ITS ---
PROCEDURE INFORMATION: Exam: XR Chest Exam date and time: 12/17/2024 1:58 PM Age: 79 years old Clinical indication: Shortness of breath; Additional info: SOB; Hypoxia; Hypoglycemia TECHNIQUE: Imaging protocol: Radiologic exam of the chest. Views: 1 view. COMPARISON: CR XR chest 2V* [id number] 11/29/2019 3:32 PM FINDINGS: Lungs: Both lungs demonstrate diffuse interstitial coarsening which is felt to be chronic. No lung mass or infiltrate. Pleural spaces: Unremarkable. No pleural effusion. No pneumothorax. Heart/Mediastinum: Unremarkable. No cardiomegaly. Bones/joints: Unremarkable. XR/XR chest 1V portable [id number] IMPRESSION: 1. No acute findings 2. Chronic lung changes are noted
[2024-12-17 14:32] VITALS: BP 163/74; PULSE 76; O2SAT 98
[2024-12-17 14:47] LABS: Respiratory Syncytial Virus Ce NEGATIVE (Negative); SARS-CoV-2 PCR NEGATIVE (Negative)
[2024-12-17 15:19] VITALS: BP 185/97; PULSE 80; O2SAT 97
[2024-12-17 15:45] VITALS: BP 162/78; PULSE 76; O2SAT 95
== END 2024-12-17 15:48 | disposition home or self-care (01) ==
PROVIDERS: Emergency Provider Physician Assistant; PCP Internal Medicine
DX: E11.649 Type 2 diabetes mellitus with hypoglycemia without coma (principal); I95.9 Hypotension, unspecified; Z79.02 Long term (current) use of antithrombotics/antiplatelets; Z79.4 Long term (current) use of insulin; Z11.52 Encounter for screening for COVID-19; Z86.73 Personal history of transient ischemic attack (TIA), and cerebral infarction without residual deficits
CPT/HCPCS: 36415; 36416; 71045; 80053; 82962; 85025; 87637; 93005; 99285; J7042

== ENCOUNTER 2025-02-06 04:18 | Emergency (ER) | payer MEDICARE, MEDICAID, SELFPAY ==
[2025-02-06 04:21] VITALS: BP 166/79; PULSE 88; RESP 18; TEMP 36.9; O2SAT 94; BMI 37.5
--- NOTE | 2025-02-06 04:25 | XRR_ITS ---
PROCEDURE INFORMATION: Exam: XR Left Ankle Exam date and time: 02/06/2025 4:28 AM Age: 79 years old Clinical indication: Pain; Ankle; Left; Additional info: Trauma TECHNIQUE: Imaging protocol: Radiologic exam of the left ankle. Views: 3 or more views. COMPARISON: No relevant prior studies available. FINDINGS: Bones/joints: Moderate demineralization. Calcaneal spurring. Soft tissues: Normal. Vasculature: Arterial calcifications. XR/XR ankle LT min 3V* [id number] IMPRESSION: No acute findings.
--- NOTE | 2025-02-06 04:34 | XRR_ITS ---
PROCEDURE INFORMATION: Exam: XR Chest Exam date and time: 02/06/2025 4:35 AM Age: 79 years old Clinical indication: Cough and dyspnea; Additional info: Dyspnea/cough TECHNIQUE: Imaging protocol: Radiologic exam of the chest. Views: 1 view. COMPARISON: CR XR chest 1V portable [id number] 12/17/2024 1:58 PM FINDINGS: Lungs: Hypoventilatory changes in the lower lobes. An infiltrate not excluded. Pleural spaces: Unremarkable. No pleural effusion. No pneumothorax. Heart/Mediastinum: Mild cardiomegaly. Bones/joints: Unremarkable. Soft tissues: The study is limited by patient's body habitus and increased soft tissue density over the lung bases. XR/XR chest 1V portable [id number] IMPRESSION: Mild bibasilar opacities.
--- NOTE | 2025-02-06 04:40 | ECG_ITS ---
[facility] Test Date: 2025-02-06 Pat Name: Elida Galvan Department: Room: Gender: Female Manager Work: : 1945 Requested By: Pedro Castellon Order Number: [id number] Brandon MD: Aaron Doherty M.D. Measurements Intervals [place] Rate: 106 P: 0 ME: 0 QRS: 57 QRSD: 102 T: 28 QT: 339 QTc: 452 Interpretive Statements ATRIAL FIBRILLATION WITH RAPID VENTRICULAR RESPONSE INFERIOR MYOCARDIAL INFARCTION , OF INDETERMINATE AGE, Q waves. Compared to ECG 12/17/2024 13:40:38 Myocardial infarct finding now present Electronically Signed On 02-06-2025 10:08:41 CASE INVESTIGATOR by Aaron Doherty M.D. [email or web address]
[2025-02-06 05:02] LABS: Glucose Urine UA 3+ (Normal); Nitrate Urine Negative (Negative); Specific Gravity, Urine 1.029 (1.005-1.030)
[2025-02-06 05:08] LABS: Add Urine Microscopic? YES
[2025-02-06 05:21] LABS: UA Slide Review UA Slide Review Perf
[2025-02-06 05:26] VITALS: PULSE 118; O2SAT 94
--- NOTE | 2025-02-06 05:43 | W.ED.GENADLT ---
HPI - General Adult General: Chief complaint: General Medical Stated complaint: Left ankle pain History of Present Illness: 79-year-old female presents to the emergency room with complaints of left ankle pain. EMS reports that they were called for rib pain however when the patient arrived she denied any rib pain states that only her left ankle hurt. When she arrives here she is only complaining to us about ankle pain. We contacted the longterm there report was that she had what they described as crushing chest pain. She has no chest pain here and she initially does not want any lab work done. Associated symptoms: Deny chest pain, dyspnea or rash Related Data Home Medications ?Medication ?Instructions ?Recorded ?Confirmed acetaminophen 325 mg tablet 650 mg PO BID 09/24/24 12/17/24 (Tylenol) acetaminophen 325 mg tablet 650 mg PO Q4H PRN Pain 09/24/24 12/17/24 (Tylenol) bisacodyl 10 mg rectal suppository 10 mg GA DAILY PRN Constipation 09/24/24 12/17/24 (Dulcolax (bisacodyl)) brimonidine 0.1 % eye drops 1 drp ophthalmic (eye) BID 09/24/24 12/17/24 (Alphagan P) Held on 11/11/24. Instructions: Resume on 11/14/24. clopidogrel 75 mg tablet (Plavix) 75 mg PO DAILY 09/24/24 12/17/24 hydrocodone 5 mg-acetaminophen 325 1 tab PO .Q4-6H PRN pain 09/24/24 12/17/24 mg tablet insulin glargine 100 unit/mL (3 72 unit SUBCUT BEDTIME 09/24/24 12/17/24 mL) subcutaneous pen (Lantus Solostar U-100 Insulin) insulin lispro 100 unit/mL 30 unit SUBCUT TID 09/24/24 12/17/24 subcutaneous solution latanoprost (PF) 0.005 % eye drops 1 drp ophthalmic (eye) BEDTIME 09/24/24 12/17/24 in a dropperette levothyroxine 50 mcg tablet 50 mcg PO QAM 09/24/24 12/17/24 (Euthyrox) magnesium hydroxide 400 mg/5 mL 30 ml PO DAILY PRN Constipation 09/24/24 12/17/24 oral suspension (Milk of Magnesia) ondansetron HCl 4 mg tablet 4 mg PO Q4H PRN Nausea 09/24/24 12/17/24 pantoprazole 40 mg tablet,delayed 40 mg PO DAILY 09/24/24 12/17/24 release phenylephrine 0.25 %-pramoxine 1 1 applic GA BID PRN Hemorrhoids 09/24/24 12/17/24 %-glycerin-wh.petrolatum rectal cream (Preparation H Maximum Strength) polyethylene glycol 3350 17 17 g PO DAILY 09/24/24 12/17/24 gram/dose oral powder (Miralax) sertraline 50 mg tablet (Zoloft) 75 mg PO BEDTIME 09/24/24 12/17/24 sodium chloride 1,000 mg soluble 1,000 mg PO DAILY 09/24/24 12/17/24 tablet nitroglycerin 0.4 mg sublingual 0.4 mg sublingual Q5M PRN Chest 12/17/24 12/17/24 tablet (Nitrostat) Pain prednisolone acetate 1 % eye 1 drp ophthalmic (eye) QID 12/17/24 12/17/24 drops,suspension Previous Rx's ?Medication ?Instructions ?Recorded aspirin 325 mg capsule 325 mg PO DAILY #30 caps 02/06/25 metoprolol succinate 25 mg 25 mg PO DAILY #30 tabs 02/06/25 tablet,extended release 24 hr (Toprol XL) Allergies Allergy/AdvReac Type Severity Reaction Status Date / Time Penicillins Allergy Unknown Verified 09/24/24 13:08 Review of Systems Const: Denies: fever(s) or chills Card: Denies: chest pain Resp: Denies: dyspnea GI: Denies: abdominal pain : Denies: dysuria, urinary frequency or urinary urgency Musc: Denies: neck pain or back pain Skin/Breast: Denies: rash Physical Exam Const: GENERAL APPEARANCE: cooperative ORIENTATION/CONSCIOUSNESS: Yes awake HENMT: COMMON NORMALS: normocephalic, atraumatic and hearing grossly normal bilaterally HEAD & SCALP: normocephalic and atraumatic Resp: COMMON NORMALS: normal respiratory effort, No retractions, No use of accessory muscles and clear to auscultation bilaterally AUSCULTATION: clear to auscultation bilaterally Cardio: COMMON NORMALS: regular rate, regular rhythm and No murmurs present (Cardio) RATE: regular rate RHYTHM: regular rhythm GI: COMMON NORMALS: Soft to palpation and No hepatosplenomegaly present AUSCULTATION: Yes normoactive bowel sounds PALPATION: Yes Soft to palpation, No Tenderness to palpation present (GI), No Guarding due to palpation present (GI) and Yes No hepatosplenomegaly present Extremity: COMMON NORMALS: normal to inspection, capillary refill normal, no clubbing, cyanosis or edema, no calf tenderness and no pedal edema Skin: COMMON NORMALS: no rashes or lesions noted GENERAL SKIN EXAM: no rashes or lesions noted Course Vital Signs: Vital signs: Vital Signs Temperature 98.5 F 02/06/25 04:21 Pulse Rate 118 H 02/06/25 05:26 Respiratory Rate 18 02/06/25 04:21 Blood Pressure 166/79 02/06/25 04:21 Pulse Oximetry 94 02/06/25 05:26 Oxygen Delivery Me thod Room Air 02/06/25 05:26 MDM - General Adult Medical Decision Making Medical decision making Social determinants: Patient eva resides in longterm I reviewed the patient's medical record. I reviewed the patient's current home meds Alternate historians: Discussed with longterm staff to confirm history and HPI Differential diagnosis: Left ankle fracture rib fracture Lab Review: Reviewed as found on the chart Imaging: X-ray left ankle negative chest x-ray no acute findings. Radiology read as possible infiltrates suspect is more atelectasis and hypoventilation. Assessment of risk: Level of risk: Moderate Hospitalization considerations: Considered hospitalization for new onset atrial fibrillation. However rate is well-controlled discussed with her attending physician ultimately agreed to treat as an outpatient attending will continue to follow with the longterm Reexamination: Repeat examination patient is stable she is insisting on laying flat says makes her back feel better. She denies any pain anywhere except the left ankle she denies any neck or chest pain at this time. She did not had any lightheadedness dizziness or shortness of breath per her report. Will discharge back to the longterm start on Toprol-XL also add full-size aspirin daily and follow-up with her primary physician at the longterm Assessment and plan: New onset atrial fibrillation, left ankle pain Medical Records I reviewed the patient's medical records. Lab Data I reviewed the patient's lab results. 02/06/25 05:39 02/06/25 05:39 Radiology Impressions Ankle X-Ray 02/06/25 04:25 IMPRESSION: No acute findings. Chest X-Ray 02/06/25 04:34 IMPRESSION: Mild bibasilar opacities. Laboratory Results WBC 12.35 10^3/uL (3.29-11.43) H 02/06/25 05:39 RBC 4.16 10^6/uL (3.85-5.65) 02/06/25 05:39 Hgb 11.30 g/dL (11.27-16.99) 02/06/25 05:39 Hct 36.8 % (36-47) 02/06/25 05:39 MCV 88.5 fl (85-98) 02/06/25 05:39 MCH 27.2 pg (27-33) 02/06/25 05:39 MCHC 30.7 g/dL (30-55) 02/06/25 05:39 RDW 14.1 % (12.1-15.1) 02/06/25 05:39 Plt Count 335 10^3/cmm (157-399) 02/06/25 05:39 MPV 9.9 fL (7.4-10.4) 02/06/25 05:39 Neut % (Auto) 79.5 % 02/06/25 05:39 Lymph % (Auto) 12.7 % 02/06/25 05:39 Jay % (Auto) 6.9 % 02/06/25 05:39 Eos % (Auto) 0.3 % 02/06/25 05:39 Baso % (Auto) 0.2 % 02/06/25 05:39 Neut # (Auto) 9.82 10^3/uL (1.8-7.7) H 02/06/25 05:39 Lymph # (Auto) 1.6 10^3/uL (0.8-4.8) 02/06/25 05:39 Jay # (Auto) 0.9 10^3/uL (0.2-0.9) 02/06/25 05:39 Eos # (Auto) 0.0 10^3/uL (0.0-0.8) 02/06/25 05:39 Baso # (Auto) 0.0 10^3/uL (0.0-0.1) 02/06/25 05:39 Nucleated RBC % (auto) 0 % 02/06/25 05:39 Nucleated RBCs # 0.0 /100WBC 02/06/25 05:39 Sodium 134 mmol/L (136-145) L 02/06/25 05:39 Potassium 4.8 mmol/L (3.5-5.1) 02/06/25 05:39 Chloride 97 mmol/L (98-107) L 02/06/25 05:39 Carbon Dioxide 24 mmol/L (22-29) 02/06/25 05:39 Anion Gap 17.8 (5-19) 02/06/25 05:39 BUN 29 mg/dL (8-23) H 02/06/25 05:39 Creatinine 1.0 mg/dL (0.5-0.9) H 02/06/25 05:39 GFR Calculation Not Reportable 02/06/25 05:39 Glucose 388 mg/dL (65-115) H 02/06/25 05:39 Calculated Osmolality 300 mOsm/kg (285-295) H 02/06/25 05:39 Calcium 8.8 mg/dL (8.5-10.5) 02/06/25 05:39 Total Bilirubin 0.6 mg/dL (0.15-1.2) 02/06/25 05:39 AST 45 U/L (0-32) H 02/06/25 05:39 ALT 21 U/L (0-33) 02/06/25 05:39 Alkaline Phosphatase 123 U/L (35-105) H 02/06/25 05:39 Total Protein 7.8 g/dL (6.6-8.7) 02/06/25 05:39 Albumin 3.7 g/dL (3.5-5.2) 02/06/25 05:39 Globulin 4.1 g/dL (1.3-4.6) 02/06/25 05:39 Urine Color Yellow (Yellow) 02/06/25 04:53 Urine Appearance Clear (CLEAR) 02/06/25 04:53 Urine pH 5.0 (5-7) 02/06/25 04:53 Ur Specific Sumner 1.029 (1.005-1.030) 02/06/25 04:53 Urine Protein 1+ (Negative) A 02/06/25 04:53 Urine Glucose (UA) 3+ (Normal) H 02/06/25 04:53 Urine Ketones Negative (Negative) 02/06/25 04:53 Urine Blood 2+ (Negative) A 02/06/25 04:53 Urine Nitrate Negative (Negative) 02/06/25 04:53 Urine Bilirubin Negative (Negative) 02/06/25 04:53 Urine Urobilinogen 0.2 mg/dL (Negative) 02/06/25 04:53 Ur Leukocyte Esterase Negative (Negative) 02/06/25 04:53 Urine RBC 11-20 /hpf (0-2) H 02/06/25 04:53 Urine WBC 0-5 /hpf (0-5) 02/06/25 04:53 Ur Squamous Epith Cells 15-25 /hpf (0-5) H 02/06/25 04:53 Amorphous Sediment Not Reportable 02/06/25 04:53 Urine Bacteria None seen /hpf (NONE) 02/06/25 04:53 Hyaline Casts 3.30 /lpf 02/06/25 04:53 All radiology interpretation(s) finalized by discharge EKG Data EKG 1: I personally reviewed and interpreted this EKG as follows: Interpretation: EKG 02/06/2025 5:50 AM atrial fibrillation rate of 106 QTc [address] changes noted. Q waves in 2 3 and aVF Computer generated interpretation: Ankle X-Ray 02/06/25 04:25 IMPRESSION: No acute findings. Chest X-Ray 02/06/25 04:34 IMPRESSION: Mild bibasilar opacities. Discharge Plan Discharge Patient Disposition: Home Clinical Impression: Atrial fibrillation, Ankle pain, left Condition: Stable Prescriptions: New metoprolol succinate [Toprol XL] 25 mg tablet extended release 24 hr 25 mg PO DAILY Qty: 30 0RF aspirin 325 mg capsule 325 mg PO DAILY Qty: 30 0RF No Action prednisolone acetate 1 % drops,suspension 1 drp ophthalmic (eye) QID nitroglycerin [Nitrostat] 0.4 mg Tablet, Sublingual 0.4 mg SUBLINGUAL Q5M PRN (Reason: Chest Pain) Rx Instructions: do not exceed 3 doses per episode acetaminophen [Tylenol] 325 mg Tablet 650 mg PO BID acetaminophen [Tylenol] 325 mg Tablet 650 mg PO Q4H PRN (Reason: Pain) ondansetron HCl 4 mg Tablet 4 mg PO Q4H PRN (Reason: Nausea) clopidogrel [Plavix] 75 mg Tablet 75 mg PO DAILY magnesium hydroxide [Milk of Magnesia] 400 mg/5 mL Suspension 30 ml PO DAILY PRN (Reason: Constipation) levothyroxine [Euthyrox] 50 mcg Tablet 50 mcg PO QAM bisacodyl [Dulcolax (bisacodyl)] 10 mg Suppository 10 mg GA DAILY PRN (Reason: Constipation) pantoprazole 40 mg Tablet,Delayed Release (Dr/Ec) 40 mg PO DAILY insulin lispro 100 unit/mL Solution 30 unit SUBCUT TID polyethylene glycol 3350 [Miralax] 17 gram/dose Powder 17 g PO DAILY sertraline [Zoloft] 50 mg Tablet 75 mg PO BEDTIME brimonidine [Alphagan P] 0.1 % Drops 1 drp OPHTHALMIC (EYE) BID sodium chloride 1,000 mg Tablet,Soluble 1,000 mg PO DAILY Preparation H Maximum Strength 0.25-1 % Cream 1 applic GA BID PRN (Reason: Hemorrhoids) insulin glargine [Lantus Solostar U-100 Insulin] 100 unit/mL (3 mL) Insulin Pen 72 unit SUBCUT BEDTIME latanoprost (PF) 0.005 % Dropperette 1 drp ophthalmic (eye) BEDTIME hydrocodone-acetaminophen 5-325 mg tablet 1 tab PO .Q4-6H PRN (Reason: pain) Discharge Orders: Discharge ED (Routine); Ordered 02/06/25 Ordered By: Pedro Rae Referrals: Paolo Davies DO [Physician, Internal Medicine] Discharge Diet: Usual diet Discharge Activity: Increase activity as tolerated Patient Instructions: Opioid Safety, Pain Management, Patient Portal & Alexandrea Instructions Activity Restrictions/Additional Instructions: Thank you for choosing [facility] for your healthcare needs today. It is very important that you follow up as instructed or that you return to the Emergency Department should you have concerns or if your condition changes or worsens in any way. Emergency department visits are focused on emergent conditions, in some cases you may require further evaluation on an outpatient basis. You were seen in the emergency room with complaints of left ankle pain. Ankle x-ray and chest x-ray did not show any acute findings. Your EKG did show a abnormal heart rhythm called atrial fibrillation. Discussed with your attending doctor at the longterm and we recommend that you continue to treat this as an outpatient will start you on oral medication here he will continue to follow and do appropriate further workup as indicated. We also recommend that you add a full-size aspirin daily to your medication regimen. (Please note that included in your discharge packet is information concerning opioid safety and pain management. This information is given to all patients were discharged from the ER regardless of their discharge diagnosis or the medicines they usually take or are prescribed.) Print Language: Spanish Coding Level of Care Code ED Customer Care Team Coach for Radha Javed
[2025-02-06 05:48] LABS: Hematocrit 36.8 % (36-47); Hemoglobin 11.30 g/dL (11.27-16.99); Mean Corpuscular HGB Conc 30.7 g/dL (30-55); Mean Corpuscular Hemoglobin 27.2 pg (27-33); Mean Corpuscular Volume 88.5 fl (85-98); Nucleated Red Blood Cells % 0 %; Platelet Count 335 10^3/cmm (157-399); Red Blood Count 4.16 10^6/uL (3.85-5.65); White Blood Count 12.35 10^3/uL (3.29-11.43)
[2025-02-06 06:06] LABS: Alanine Aminotransferase 21 U/L (0-33); Albumin Level 3.7 g/dL (3.5-5.2); Alkaline Phosphatase 123 U/L (35-105); Anion Gap 17.8 (5-19); Aspartate Amino Transferase 45 U/L (0-32); Blood Urea Nitrogen 29 mg/dL (8-23); Calcium 8.8 mg/dL (8.5-10.5); Carbon Dioxide 24 mmol/L (22-29); Chloride 97 mmol/L (98-107); Globulin 4.1 g/dL (1.3-4.6); Glucose 388 mg/dL (65-115); Osmolality Calculated 300 mOsm/kg (285-295); Potassium 4.8 mmol/L (3.5-5.1); Sodium 134 mmol/L (136-145); Total Protein 7.8 g/dL (6.6-8.7)
[2025-02-06 06:31] VITALS: BP 141/86; PULSE 108; O2SAT 95
--- NOTE | 2025-02-06 06:58 | PC.NURSE ---
offered pt re-position d/t uncomfortable bed.
[2025-02-06 07:17] VITALS: PULSE 109; RESP 18
--- NOTE | 2025-02-06 07:59 | PC.NURSE ---
pt left with [place] transport @[id number], d/c paperwork sent with pt's transport
--- NOTE | 2025-02-10 20:58 | PC.NURSE ---
This nurse gave pt metoprolol 25 mg PO at 0530 am.
== END 2025-02-06 07:59 | disposition home or self-care (01) ==
PROVIDERS: Emergency Provider Family Medicine; PCP Internal Medicine
DX: M25.572 Pain in left ankle and joints of left foot (principal); I48.91 Unspecified atrial fibrillation; Z79.02 Long term (current) use of antithrombotics/antiplatelets; Z79.4 Long term (current) use of insulin
CPT/HCPCS: 36415; 71045; 73610; 80053; 81001; 85025; 93005; 99285

== ENCOUNTER 2025-02-11 19:18 | Emergency (ER) | payer MEDICARE, MEDICAID, SELFPAY ==
[2025-02-11 19:20] VITALS: BP 122/71; PULSE 73; RESP 24; TEMP 36.7; O2SAT 95; BMI 37.1
--- OUTSIDE RECORDS SUMMARY | 2025-02-11 19:38 | XMS_ITS | Continuity of Care Document ---
Author Organization [facility] Ayana, Lisseth, [facility] ([facility]) Address [address] [place] [address] Assessment No assessment recorded. Plan of Treatment Reminders Order Date Submit Date Provider Last Modified By Organization Details Last Modified Time Details Appointments None record ed. Lab None record ed. Referral None record ed. Procedures None record ed. Surgeries None record ed. Imaging None record ed. Medication Orders None record ed. Patient TargetsNo targets recorded. Patient Instructions Encounter Date Encounter Id Patient Instructions Last Modified By Organization Details Last Modified Time 12/18/2024 [id number] seen in ER for low blood sugar. Per ER insulin held on Wednesday. Will decrease glargine to 65 and lispro to 25. Not available 12/18/2024 14:08:43 Reason for Referral None Reported. Problems Name Problem SNOMED Code Status Onset Date Resolution Date Notes Provider Name and Address Organization Details Recorded Time Vascular dementia without behavioral disturbanc e 5843507438773 9109 Active 2022 [facility] 12:22:08 Hyperglyce norma due to type 2 diabetes mellitus 8083953090772 09 Active 2022 [facility] 12:22:08 Hypothyroi dism 14165508 Active 2022 [facility] 12:22:39 Dyspnea 428641525 Active 2022 [facility] 15:22:38 Near syncope 543156482 [facility] 15:23:13 Diabetes mellitus 25956212 [facility] 20[facility] 15:23:40 Anxiety 98628048 Active 2023 IBRAHIMA NAGEL [facility] 4 13:45:24 Benign essential hypertensi on 1316820 Active 2023 IBRAHIMA NAGEL [facility] 4 13:45:32 Need for personal care assistance 3590733929661 9106 Active 2023 IBRAHIMA NAGEL [facility] 4 13:45:39 Depressive disorder 79207675 Active 2023 IBRAHIMA NAGEL [facility] 4 11:27:09 Abnormal gait 64776930 Active 2024 IBRAHIMA NAGEL [facility] 5 10:40:51 Requires continuous supervisio n for activities of daily living 089729263 Active 2024 IBRAHIMA NAGEL [facility] 5 10:41:30 History of fall 686375329 Active 2024 IBRAHIMA NAGEL [facility] 5 18:10:12 Atrial fibrillati on 44396304 Active 2024 IBRAHIMA NAGEL [facility] 5 18:10:13 Problem Notes None recorded. Medical Equipment None Reported. Allergies Allergen ID Allergen Name Allergen Category Reaction Reaction Severity Criticality Documentation Date Start Date Code Code System Note Provider Name and Address Organization Details Recorded Time 73514 penicilli n G potassium medicatio n Not available Not available Not available 10/10/2022 3 RxNorm Comme nt: Recor ded 05/12 1:08P M by Aparna denton RN, Offic e Visit ; Cris beltran; Cristobal viera ce: *; Reaso n: Drug aller gy; ; Not Available [facility] 3 02:28:38 Medications Name Sig Start Date Stop Date Status Note LastModified by Organization Details LastModified Time citalopram 10 mg tablet daily 2020 active 30175; Recorded 12/26/2020 1:52PM by Modesta Gonzalez (Authorize d through Paolo Davies DO), Office Visit; Not Available Not Available Not Available senna 8.6 mg tablet two times daily active 0; Recorded 05/12/2022 1:08PM by Ibrahima Nagel RN, Office Visit; Not Available Not Available Not Available Lantus U-100 Insulin 100 unit/mL subcutaneo us solution at bedtime 2022 active recorded, not sent to pharmacy. dose increase; 63570; Recorded 05/12/2022 1:10PM by Ibrahima Nagel RN (Authorize d through Paolo Davies DO), Office Visit; Refill Quantity: 0; Not Available Not Available Not Available tamsulosin 0.4 mg capsule at bedtime active 0; Recorded 05/12/2022 1:08PM by Ibrahima Nagel RN, Office Visit; Not Available Not Available Not Available pantoprazo le 40 mg tablet,del ayed release daily active 0; Recorded 05/12/2022 1:08PM by Ibrahima Nagel RN, Office Visit; Not Available Not Available Not Available Artificial Tear four times daily, as needed active Dr. Muniz; 0; Recorded 05/12/2022 1:08PM by Ibrahima Nagel RN, Office Visit; Not Available Not Available Not Available insulin lispro three times daily 2022 active 82775; Recorded 03/31/2022 10:34AM by Ibrahima Nagel RN (Authorize d through Paolo Davies DO), Office Visit; Not Available Not Available Not Available Euthyrox daily active 0; Recorded 05/12/2022 1:08PM by Ibrahima Nagel RN, Office Visit; Not Available Not Available Not Available metformin two times daily active 0; Recorded 05/12/2022 1:08PM by Ibrahima Nagel RN, Office Visit; Not Available Not Available Not Available Vitals Date Recorded Heart rate Respiratory rate Body temperature Oxygen saturation Systolic And Diastolic Provider Name and Address Organization Details Last Updated DateTime 5 65 /min 20 /min 97.8 [degF] 96 % 156/70 mm[Hg] IBRAHIMA KRZYSZTOF [facility] 5 14:04:15 Social History Question Answer Notes LastModified by Organizat ion Details LastModified Time Tobacco Smoking Status Unknown If Ever Smoked IBRAHIMA KRZYSZTOF [facility] 06/23/2022 16:11:28 Have You Had Direct Contact, Or Contact During Intimacy, With Monkeypox Rash, Scabs, Or Body Fluids From A Person With Monkeypox? No [email or web address] Information not available 06/23/2022 Have You Recently Traveled Abroad? No [email or web address] Information not available 06/23/2022 Sex: Unknown Functional Status Question Answer Note LastModified by Organization D etails LastModified Time Do you have difficulty doing errands alone? Yes [email or web address] Information not available 06/23/2022 Are you able to care for yourself independently? No Information not available 06/23/2022 Do you have difficulty dressing, bathing, grooming, or toileting? Yes [email or web address] Information not available 06/23/2022 Mental Status Question Answer Note LastModified by Organization D etails LastModified Time Do you have difficulty concentrating, remembering or making decisions? Yes Information no t available 06/23/2022 Family History Nothing Reported. Medical History No medical history recorded. Gynecological HistoryNo gynecological history recorded. Obstetrics History GPAL:G 0 P 0 0 0 0 Immunizations Vaccine Type Date Status Note Provider Nam e and Address Organization Details Recorded Time COVID-19, mRNA, LNP-S, PF, 30 mcg/0.3 mL dose 04/12/2020 completed Not Available [facility] 5 15:41:40 COVID-19, mRNA, LNP-S, PF, 30 mcg/0.3 mL dose 05/10/2020 completed Not Available [facility] 5 15:41:40 COVID-19, mRNA, LNP-S, PF, 100 mcg/0.5mL dose or 50 mcg/0.25mL dose 06/11/2021 completed Not Available [facility] 5 15:41:40 COVID-19, mRNA, LNP-S, PF, 100 mcg/0.5mL dose or 50 mcg/0.25mL dose 09/30/2021 completed Not Available [facility] 5 15:41:40 COVID-19, mRNA, LNP-S, bivalent, PF, 50 mcg/0.5 mL or 25mcg/0.25 mL dose 01/20/2022 completed Not Available [facility] 5 15:41:40 COVID-19, mRNA, LNP-S, bivalent, PF, 50 mcg/0.5 mL or 25mcg/0.25 mL dose 08/18/2022 completed Not Available [facility] 5 15:41:40 Past Encounters Encounter ID Performer Location Encounter Start Date Encounter Closed Date Diagnosis/Indication Diagnosis SNOMED-CT Code Diagnosis ICD10 Code Diagnosis IMO Codes Diagnosis Note [id number] Paolo Davies DO [address] [address] 12/18/2024 12:36:15 12/20/2024 07:35:17 Hyperglycemia due to type 2 diabetes mellitus 5329548140 90910 E11.3213 Hypoglycemia 737465518 E 16.2 44222 Health Concerns Section Related Observation LastModified by Organization Detai ls LastModified Time None Recorded Concern Status LastModified by Organization Details LastModified Time None Recorded Payers Encounter Date Sequence Insurance Name Policy Number Policy Maher Covered Member ID Maher Member ID Guarantor Name 12/18/2024 1 [facility] (MEDICARE REPLACEMENT/A DVANTAGE - PPO) [id number] Elida Galvan [id number] Elida Galvan 12/18/2024 2 [place] Elida Galvan [id number] Elida Galvan Notes Date Note Type Note Provider Name and Address Organization Details Recorded Time 5 text/html DiabetesReported by CaregiverHPIFor duration, caregiver reportschronic. For compliance, caregiver reportscompliant with medicationsandcompliant with follow-up visits. For associated symptoms, caregiver reportsno dizziness,no sweats, andno paresthesias.ROS as noted in the HPI ER follow up Paolo Davies [address], [address], [facility] 12/18/2024 14:55:41 OBGyn Episode No OBEpisode recorded.
--- OUTSIDE RECORDS SUMMARY | 2025-02-11 19:38 | XMS_ITS | Continuity of Care Document ---
Author Organization [facility] Ayana, Lisseth, [facility] ([facility]) Address [address] [place] [address] Assessment No assessment recorded. Plan of Treatment [...] Modified By Organization Details Last Modified Time 11/16/2024 [id number] ER notes [email or web address] d. Evaluated by opthalmologic with adjustment in dose of prednisolone drops and plan for out patient follow up. Minimal pain. Staff reports increased confusion. Sugars too high, increase lantus to 72 and lispro to 30. [email or web address] Not available 11/20/2024 15:36:06 Reason for Referral None Reported. Problems Name Problem SNOMED Code Status Onset Date Resolution Date Notes Provider Name and Address Organization Details Recorded Time Vascular dementia without behavioral disturbanc e 4533691995227 9109 [facility] 2022 [facility] 12:[facility]08 Hyperglyce norma due to type 2 diabetes mellitus 3264582495237 Active 2022 [facility] 12:22[facility]08 Hypothyroi dism 67960663 Active 2022 [facility] 12:22:39 Dyspnea 932727983 Active 2022 GIRMA woodard [facility] 3 15:22:38 Near syncope 209829995 [facility] 3 15:23:13 Diabetes mellitus 92215092 Active [address] [facility] 3 15:23:40 Anxiety 47778239 Active 2023 IBRAHIMA [address] [facility] 4 13:45:24 Benign essential hypertensi on 0169232 Active 2023 IBRAHIMA NAGEL [facility] 4 13:45:32 Need for personal care assistance 7588802797379 9106 Active 2023 IBRAHIMA NAGEL [facility] 4 13:45:39 Depressive disorder 04907138 Active 2023 IBRAHIMA NAGEL [facility] 4 11:27:09 Abnormal gait 77241342 Active 2024 IBRAHIMA NAGEL [facility] 5 10:40:51 Requires continuous supervisio n for activities of daily living 288997292 Active 2024 IBRAHIMA NAGEL [facility] 5 10:41:30 History of fall 728809238 Active 2024 IBRAHIMA NAGEL [facility] 5 18:10:12 Atrial fibrillati on 66544620 Active 2024 IBRAHIMA NAGEL [facility] 5 18:10:13 Problem Notes None recorded. Medical Equipment None Reported. Allergies Allergen ID Allergen Name Allergen Category Reaction Reaction Severity Criticality Documentation Date Start Date Code Code System Note Provider Name and Address Organization Details Recorded Time 17861 penicilli n G potassium medicatio n Not available Not available Not available 10/10/2022 3 RxNorm Comme nt: Recor ded 05/12 1:08P M by Aparna denton RN, Offic e Visit ; Promo ruyb; Cristobal viera ce: *; Reaso n: Drug aller gy; ; [facility] 02:[facility]38 Medications Name Sig Start Date Stop Date Status Note LastModified by Organization Details LastModified Time citalopram 10 mg tablet daily 2020 active 03582; Recorded 12/26/2020 1:52PM by Modesta Gonzalez (Authorize d through Paolo Davies DO), Office Visit; Not Available Not Available Not Available senna 8.6 mg tablet two times daily active 0; Recorded 05/12/2022 1:08PM by Ibrahima Nagel RN, Office Visit; Not Available Not Available Not Available Lantus U-100 Insulin 100 unit/mL subcutaneo us solution at bedtime 2022 active recorded, not sent to pharmacy. dose increase; 21515; Recorded 05/12/2022 1:10PM by Ibrahima Nagel RN [...] insulin lispro three times daily 2022 active 28974; Recorded 03/31/2022 10:34AM by Ibrahima Nagel RN [...] Details Last Updated DateTime 5 65 /min 18 /min 97.7 [degF] 98 % 150/65 mm[Hg] IBRAHIMA NAGEL [facility] 5 13:26:15 Social History Question Answer Notes LastModified by Organizat ion Details LastModified Time Tobacco Smoking Status Unknown If Ever Smoked IBRAHIMA NAGEL [facility] 06/23/2022 16:11:28 Have You Had Direct Contact, Or Contact During Intimacy, With Monkeypox Rash, Scabs, Or Body Fluids From A Person With Monkeypox? No Information not available 06/23/2022 Have You Recently Traveled Abroad? No [email or web address] Information not available 06/23/2022 Sex: Unknown Functional Status Question Answer Note LastModified by Organization D etails LastModified Time Do you have difficulty doing errands alone? Yes Information not available 06/23/2022 Are you able to care for yourself independently? No [email or web address] Information not available 06/23/2022 Do you have difficulty dressing, bathing, grooming, or toileting? Yes Information not available 06/23/2022 Mental Status Question Answer Note LastModified by Organization D etails LastModified Time Do you have difficulty concentrating, remembering or making decisions? Yes [email or web address] Information no t available 06/23/2022 Family History Nothing Reported. Medical History No medical history recorded. Gynecological HistoryNo gynecological history recorded. Obstetrics History GPAL:G 0 P 0 0 0 0 Immunizations Vaccine Type Date Status Note Provider Nam e and Address Organization Details Recorded Time COVID-19, mRNA, LNP-S, PF, 30 mcg/0.3 mL dose 04/12/2020 completed Not Available [facility] 5 15:41:40 COVID-19, mRNA, LNP-S, PF, 30 mcg/0.3 mL dose 05/10/2020 completed Not Available [facility] 5 15:41:40 COVID-19, mRNA, LNP-S, PF, 100 mcg/0.5mL dose or 50 mcg/0.25mL dose 06/11/2021 completed Not Available [facility] 5 15:41:40 COVID-19, mRNA, LNP-S, PF, 100 mcg/0.5mL dose or 50 mcg/0.25mL dose 09/30/2021 completed Not Available [facility] 5 15:41:40 COVID-19, mRNA, LNP-S, bivalent, PF, 50 mcg/0.5 mL or 25mcg/0.25 mL dose 01/20/2022 completed Not Available [facility] 5 15:41:40 COVID-19, mRNA, LNP-S, bivalent, PF, 50 mcg/0.5 mL or 25mcg/0.25 mL dose 08/18/2022 completed Not Available [facility] 5 15:41:40 Past Encounters Encounter ID Performer Location Encounter Start Date Encounter Closed Date Diagnosis/Indication Diagnosis SNOMED-CT Code Diagnosis ICD10 Code Diagnosis IMO Codes Diagnosis Note [id number] Paolo Davies DO [facility]) [address] [place] [phone] 10/23/2024 14:29:09 10/30/2024 16:14:43 Vascular dementia without behavioral disturbance 1194227636 1333019 F01.50 Hyperglyce norma due to type 2 diabetes mellitus 0928695090 36003 E11.3213 [id number] Paolo Davies DO [facility]) [address] [place] [address] [phone] 11/16/2024 07:52:58 11/21/2024 11:47:58 Vascular dementia without behavioral disturbance 3651424618 9343744 F01.50 Benign ess ential hypertension 3618974 I10 Hyperglyce norma due to type 2 diabetes mellitus 2415802130 13891 E11.3213 Uveitis 875249465 H20.9 41864 Health Concerns Section Related Observation LastModified by Organization Detai ls LastModified Time None Recorded Concern Status LastModified by Organization Details LastModified Time None Recorded Payers Encounter Date Sequence Insurance Name Policy Number Policy Maher Covered Member ID Maher Member ID Guarantor Name 11/16/2024 1 [facility] (MEDICARE REPLACEMENT/A DVANTAGE - PPO) [id number] Elida Galvan [id number] Elida Galvan 11/16/2024 2 [place] Elida Galvan [id number] Elida Galvan Notes Date Note Type Note Provider Name and Address Organization Details Recorded Time 5 text/html DiabetesReported by CaregiverHPIFor duration, caregiver reportschronic. For compliance, caregiver reportscompliant with medicationsandcompliant with follow-up visits. For associated symptoms, caregiver reportsno dizziness,no sweats, andno paresthesias.ROS as noted in the HPI No complaints or concerns per pt. Paolo Davies, DO [address] [place] [address], [phone], [facility] 11/20/2024 15:36:25 OBGyn Episode No OBEpisode recorded.
--- OUTSIDE RECORDS SUMMARY | 2025-02-11 19:38 | XMS_ITS | Data Portability ---
Author Organization [facility] Fercho Grace [facility] Lisseth Piña [facility] Address [address] [address] Assessment No assessment recorded. Plan of Treatment [...] Modified By Organization Details Last Modified Time 10/23/2024 [id number] sugars are great . Mood good. Vitals stable. [email or web address] Not available 10/23/2024 14:32:06 11/16/2024 [id number] ER notes [email or web address]. Evaluated by opthalmologic with adjustment in dose of prednisolone drops and plan for out patient follow up. Minimal pain. Staff reports increased confusion. Sugars too high, increase lantus to 72 and lispro to 30. [email or web address] Not available 11/20/2024 15:36:06 12/18/2024 [id number] seen in ER for l ow blood sugar. Per ER insulin held on Wednesday. Will decrease glargine to 65 and lispro to 25. [email or web address] Not available 12/18/2024 14:08:43 01/25/2025 [id number] Feeling well. Sugars controlled. Weight and blood pressure stable. No new orders. Not available 01/25/2025 11:15:19 02/07/2025 [id number] Sent to ER after [facility]ed [facility] at [facility] care, while in ER found to be in A fib, she was asymptomatic. Started on metoprolol. In sinus today. Feeling well, mood good. Not available 02/07/2025 18:10:53 Reason for Referral None Reported. Problems Name Problem SNOMED Code Status Onset Date Resolution Date Notes Provider Name and Address Organization Details Recorded Time Vascular dementia without behavioral disturbanc e 4389675816047 9109 [facility] 2022 [facility] 12:22:08 Hyperglyce norma due to type 2 diabetes mellitus 3973016463775 09 Active 2022 [facility] 12:22:08 Hypothyroi dism 12977251 Active 2022 [facility] 3 12:22:39 Dyspnea 585107557 Active 2022 GIRMA ESPINOSA [facility] 3 15:22:38 Near syncope 537144078 Active 2022 GIRMA JESÚS [facility] 3 15:23:13 Diabetes mellitus 07987118 Active 2022 GIRMA JINJTWALE [facility] 3 15:23:40 Anxiety 12606363 Active 2023 IBRAHIMA NAGEL [facility] 4 13:45:24 Benign essential hypertensi on 0536579 Active 2023 [facility] 4 13:45:32 Need for personal care assistance 1846938619150 9106 Active 2023 [facility] 4 13:45:39 Depressive disorder 36720149 Active 2023 [facility] 4 11:27:09 Abnormal gait 54897133 Active 2024 [facility] 5 10:40:51 Requires continuous supervisio n for activities of daily living 486000481 Active 2024 [facility] 5 10:41:30 History of fall 113042608 Active 2024 [facility] 5 18:10:12 Atrial fibrillati on 56905243 Active 2024 [facility] 5 18:10:13 Problem Notes None recorded. Medical Equipment None Reported. Allergies Allergen ID Allergen Name Allergen Category Reaction Reaction Severity Criticality Documentation Date Start Date Code Code System Note Provider Name and Address Organization Details Recorded Time 97416 penicilli n G potassium medicatio n Not available Not available Not available 10/10/2022 3 RxNorm Comme nt: Recor ded 05/12 1:08P M by Aparna denton RN, Offic e Visit ; Cris viera ce: *; Reaso n: Drug aller gy; ; Not Available [facility] 3 02:28:38 Medications Name Sig Start Date Stop Date Status Note LastModified by Organization Details LastModified Time citalopram 10 mg tablet daily 2020 active 04604; Recorded 12/26/2020 1:52PM by Modesta Gonzalez (Authorize d through Paolo Davies DO), Office Visit; Not Available Not Available Not Available senna 8.6 mg tablet two times daily active 0; Recorded 05/12/2022 1:08PM by Ibrahima Nagel RN, Office Visit; Not Available Not Available Not Available Lantus U-100 Insulin 100 unit/mL subcutaneo us solution at bedtime 2022 active recorded, not sent to pharmacy. dose increase; 60293; Recorded 05/12/2022 1:10PM by Ibrahima Nagel RN [...] insulin lispro three times daily 2022 active 32197; Recorded 03/31/2022 10:34AM by Ibrahima Nagel RN [...] Address Organization Details Last Updated DateTime 5 86 /min 20 /min 98.8 [degF] 96 % 140/70 mm[Hg] [facility] 5 14:30:31 Date Recorded Heart rate Respiratory rate Body temperature Oxygen saturation Systolic And Diastolic Provider Name and Address Organization Details Last Updated DateTime 5 65 /min 18 /min 97.7 [degF] 98 % 150/65 mm[Hg] [facility] 5 13:26:15 Date Recorded Heart rate Respiratory rate Body temperature Oxygen saturation Systolic And Diastolic Provider Name and Address Organization Details Last Updated DateTime 5 65 /min 20 /min 97.8 [degF] 96 % 156/70 mm[Hg] IBRAHIMA NAGEL [facility] 5 14:04:15 Date Recorded Body weight Heart rate Respiratory rate Body temperature Oxygen saturation Systolic And Diastolic Provider Name and Address Organization Details Last Updated DateTime 5 637556. 88 g 81 /min 23 /min 98.5 [degF] 95 % 104/44 mm[Hg] IBRAHIMA NAGEL [facility] 5 11:13:27 Date Recorded Body weight Heart rate Respiratory rate Body temperature Oxygen saturation Systolic And Diastolic Provider Name and Address Organization Details Last Updated DateTime 5 810227. 69 g 88 /min 27 /min 97.9 [degF] 94 % 110/62 mm[Hg] IBRAHIMA NAGEL [facility] 5 18:08:35 Social History Question Answer Notes LastModified by Sidense ion Details LastModified Time Tobacco Smoking Status Unknown If Ever Smoked IBRAIHMA NAGEL [facility] 06/23/2022 16:11:28 Have You Had Direct Contact, Or Contact During Intimacy, With Monkeypox Rash, Scabs, Or Body Fluids From A Person With Monkeypox? No [email or web address] Information not available 06/23/2022 Have You Recently Traveled Abroad? No Information not available 06/23/2022 Sex: Unknown Functional Status Question Answer Note LastModified by Organization D etails LastModified Time Do you have difficulty doing errands alone? Yes [email or web address] Information not available 06/23/2022 Are you able to care for yourself independently? No [email or web address] Information not available 06/23/2022 Do you have difficulty dressing, bathing, grooming, or toileting? Yes [email or web address] Information not available 06/23/2022 Mental Status Question Answer Note LastModified by Organization D etails LastModified Time Do you have difficulty concentrating, remembering or making decisions? Yes [email or web address] Information no t available 06/23/2022 Family History Nothing Reported. Medical History No medical history recorded. Gynecological HistoryNo gynecological history recorded. Obstetrics History GPAL:G 0 P 0 0 0 0 Immunizations Vaccine Type Date Status Note Provider Nam e and Address Organization Details Recorded Time COVID-19, mRNA, LNP-S, PF, 30 mcg/0.3 mL dose 04/12/2020 completed Not Available [facility] 5 15:41:40 COVID-19, mRNA, LNP-S, PF, 30 mcg/0.3 mL dose 05/10/2020 completed Not Available [facility] 5 15:41:40 COVID-19, mRNA, LNP-S, PF, 100 mcg/0.5mL dose or 50 mcg/0.25mL dose 06/11/2021 completed Not Available [facility] 5 15:41:40 COVID-19, mRNA, LNP-S, PF, 100 mcg/0.5mL dose or 50 mcg/0.25mL dose 09/30/2021 completed Not Available [facility] 5 15:41:40 COVID-19, mRNA, LNP-S, bivalent, PF, 50 mcg/0.5 mL or 25mcg/0.25 mL dose 01/20/2022 completed Not Available [facility] 5 15:41:40 COVID-19, mRNA, LNP-S, bivalent, PF, 50 mcg/0.5 mL or 25mcg/0.25 mL dose 08/18/2022 completed Not Available [facility] 5 15:41:40 Past Encounters Encounter ID Performer Location Encounter Start Date Encounter Closed Date Diagnosis/Indication Diagnosis SNOMED-CT Code Diagnosis ICD10 Code Diagnosis IMO Codes Diagnosis Note [id number] Paolo Davies DO [facility] ([facility]) [address] [place] [address] 06/02/2022 14:07:47 06/08/2022 11:41:28 Uncontrolled type 2 diabetes mellitus 914472047 E11.65 [id number] Paolo Davies DO [facility] ([facility]) [address] [place] [address] 06/23/2022 09:27:36 06/30/2022 10:28:27 Diabetes mellitus 57261201 E11.9 Constipation 08109490 K5 9.00 [id number] Paolo Davies DO [facility] ([facility]) [address] [place] [address] 5 07/21/2022 08:29:39 07/25/2022 06:59:52 Hyperglycemia due to type 2 diabetes mellitus 9467943237 06087 E11.65 Vascular d ementia without behavioral disturbance 6501958658 6832644 F01.50 Hypothyroidism 19762873 E03.9 [id number] LISA HAYES PA-C [facility] ([facility]) [address] [place] [address] 5 08/26/2022 14:42:35 09/07/2022 15:11:12 Dyspnea 690854772 R06.00 I do not think she had TIAHer lung sound a bit wet. Will get some labs. Staff to monitor her today closely Near syncope 654314252 R 55 Diabetes mellitus 736884 09 E11.9 CBC/CMP/TS H/A1C/BNP VITALS Q 2 HOURS X 12 Hyperglyce norma due to type 2 diabetes mellitus 0962171411 65510 E11.3213 [id number] Paolo Davies DO [facility] ([facility]) [address] [place] [address] 5 09/01/2022 08:19:18 09/10/2022 10:14:00 Vascular dementia without behavioral disturbance 2205438577 1814304 F01.50 Hyperglyce norma due to type 2 diabetes mellitus 9746153489 59200 E11.3213 Hypothyroidism 62714319 E03.9 [id number] Paolo Davies DO [facility] ([facility]) [address] [place] [address] 5 10/06/2022 08:11:36 11/09/2022 09:47:45 Vascular dementia without behavioral disturbance 4939996526 9857144 F01.50 Diabetes mellitus 691615 09 E11.9 [id number] Paolo Davies DO [facility] ([facility]) [address] [place] [address] 5 10/27/2022 08:14:43 11/02/2022 12:25:56 Vascular dementia without behavioral disturbance 3966711754 3144367 F01.50 Hyperglyce norma due to type 2 diabetes mellitus 0557934803 69009 E11.3213 [id number] Paolo Davies DO [facility] ([facility]) [address] [place], [place] [address] 11/19/2022 10:30:38 11/27/2022 18:33:42 Vascular dementia without behavioral disturbance 9234887486 3191610 F01.50 Hyperglyce norma due to type 2 diabetes mellitus 9803766252 54572 E11.3213 [id number] Paolo Davies [facility] ([facility]) [address] [place], [place] [address] 01/05/2023 11:29:24 01/20/2023 09:11:47 Vascular dementia without behavioral disturbance 0489460221 9367778 F01.50 Hyperglyce norma due to type 2 diabetes mellitus 7745197454 E11.3213 [id number] Paolo Davies [facility] ([facility]) [address] [place], [place] [address] 01/21/2023 08:19:56 01/31/2023 20:33:00 Vascular dementia without behavioral disturbance 8559550669 7838518 F01.50 Hyperglyce norma due to type 2 diabetes mellitus 8418326615 41396 E11.3213 [id number] Paolo Davies [facility] ([facility]) [address] [place], [place] [address] 02/25/2023 08:11:32 03/03/2023 14:54:57 Vascular dementia without behavioral disturbance 0495788535 6992774 F01.50 Diabetes mellitus 846710 09 E11.9 Hyperglyce norma due to type 2 diabetes mellitus 5315915456 68059 E11.3213 [id number] Paolo Davies [facility] ([facility]) [address] [place], [place] [address] 03/30/2023 12:14:44 04/02/2023 17:55:32 Vascular dementia without behavioral disturbance 7931247289 2122360 F01.50 Diabetes mellitus 316468 09 E11.9 [id number] Paolo Davies [facility] ([facility]) [address] [place], [place] [address] 04/15/2023 07:57:03 04/27/2023 09:52:02 Vascular dementia without behavioral disturbance 9889463557 6233720 F01.50 Hyperglyce norma due to type 2 diabetes mellitus 0121183506 96133 E11.3213 Hypothyroidism 80648838 E03.9 Anxiety 74094221 F41.9 Benign ess ential hypertension 8029034 I10 Need for p [facility] care assistance 5378375805 0872317 Z74.1 [id number] Paolo Davies DO [facility] ([facility]) [address] [place] [address] 5 06/08/2023 07:51:38 06/15/2023 04:58:30 Benign essential hypertension 5902614 I10 Vascular d ementia without behavioral disturbance 8172009076 7909063 F01.50 Diabetes mellitus 912234 09 E11.9 [id number] Paolo Davies [facility]) [address] [place] [address] 5 07/01/2023 08:02:13 07/12/2023 10:51:54 Benign essential hypertension 8526669 I10 Vascular d ementia without behavioral disturbance 2166588504 4223435 F01.50 Diabetes mellitus 451766 09 E11.9 [id number] Paolo Davies [facility] ([facility]) [address] [place] [address] 5 07/22/2023 07:55:13 07/27/2023 11:44:29 Hyperglycemia due to type 2 diabetes mellitus 4888783474 58031 E11.3213 Anxiety 99302572 F41.9 Vascular d ementia without behavioral disturbance 9759179117 2025533 F01.50 [id number] Paolo Davies [facility] ([facility]) [address] [place] [address] 5 08/19/2023 09:04:45 08/24/2023 12:43:55 Benign essential hypertension 8439577 I10 Vascular d ementia without behavioral disturbance 4463605139 4916218 F01.50 Hyperglyce norma due to type 2 diabetes mellitus 2004243546 99981 E11.3213 [id number] Paolo Davies [facility] ([facility]) [address] [place] [address] 5 09/28/2023 08:25:07 09/28/2023 16:54:58 Benign essential hypertension 7685074 I10 Vascular d ementia without behavioral disturbance 1022268159 1995812 F01.50 Hyperglyce norma due to type 2 diabetes mellitus 9322164908 86228 E11.3213 [id number] Paolo Davies DO [facility] ([facility]) [address] [place] [address] 5 10/19/2023 08:03:30 10/19/2023 16:06:42 Vascular dementia without behavioral disturbance 7531758524 1816869 F01.50 Depressive disorder 3548 9007 F32.A Diabetes mellitus 426806 09 E11.9 [id number] Paolo Davies DO [facility] ([facility]) [address] [place] [address] 5 11/30/2023 08:06:49 12/01/2023 07:59:08 Vascular dementia without behavioral disturbance 8789837213 0731021 F01.50 Hyperglyce norma due to type 2 diabetes mellitus 7518261039 E11.3213 Depressive disorder 3548 9007 F32.A [id number] Paolo Davies [facility] ([facility]) [address] [place] [address] 5 12/21/2023 08:04:25 12/22/2023 09:18:41 [id number] Paolo Davies [facility] ([facility]) [address] [place] [address] 5 01/06/2024 08:51:46 01/06/2024 17:16:07 Vascular dementia without behavioral disturbance 9459693671 0151425 F01.50 Hyperglyce norma due to type 2 diabetes mellitus 8242307586 53633 E11.3213 [id number] Paolo Davies DO [facility] ([facility]) [address] [place] [address] 5 01/20/2024 08:49:34 01/20/2024 16:30:36 Vascular dementia without behavioral disturbance 9161529146 0672219 F01.50 Hyperglyce norma due to type 2 diabetes mellitus 0468857570 57940 E11.3213 [id number] Paolo Davies DO [facility] ([facility]) [address] [place] [address] 01/20/2024 09:01:57 01/24/2024 09:03:58 [id number] Paolo Davies [facility] ([facility]) [address] [place] [address] 02/15/2024 08:04:54 02/22/2024 10:13:52 Benign essential hypertension 6402006 I10 Vascular d ementia without behavioral disturbance 6438662185 9049745 F01.50 Depressive disorder 3548 9007 F32.A [id number] Paolo Davies [facility]) [address] [place] [address] 03/23/2024 14:10:13 03/28/2024 11:10:41 Benign essential hypertension 1719208 I10 Vascular d ementia without behavioral disturbance 8479889523 5561837 F01.50 Hyperglyce norma due to type 2 diabetes mellitus 9727480649 83679 E11.3213 [id number] Paolo Davies [facility] ([facility]) [address] [place] [address] 04/06/2024 08:02:52 04/10/2024 17:55:58 Benign essential hypertension 9363871 I10 Hyperglyce norma due to type 2 diabetes mellitus 4187015032 04274 E11.3213 Vascular d ementia without behavioral disturbance 7157234302 2803798 F01.50 Anxiety 51577015 F41.9 Hypothyroidism 92678789 E03.9 Need for p [facility] care assistance 2888326891 1968335 Z74.1 Abnormal gait 06789884 R 26.2 Requires c ontinuous supervision for activities of daily living 855143065 Z74.3 [id number] Paolo Davies [facility] ([facility]) [address] [place] [address] 05/08/2024 08:22:31 05/09/2024 14:42:02 Benign essential hypertension 2223183 I10 Vascular d ementia without behavioral disturbance 1873604142 8062519 F01.50 Anxiety 35072295 F41.9 Diabetes mellitus 042922 09 E11.9 [id number] Paolo Davies [facility] ([facility]) [address] [address] 5 05/29/2024 14:22:38 06/05/2024 13:25:11 Benign essential hypertension 2128538 I10 Vascular d ementia without behavioral disturbance 6859323251 6487966 F01.50 Hyperglyce norma due to type 2 diabetes mellitus 0978556027 46936 E11.3213 [id number] Paolo Davies DO [facility] ([facility]) [address] [place] [address] 5 06/26/2024 07:50:42 07/05/2024 07:54:52 Benign essential hypertension 1364632 I10 Vascular d ementia without behavioral disturbance 8289754781 3113896 F01.50 Anxiety 69627144 F41.9 Diabetes mellitus 432425 09 E11.9 [id number] Paolo Davies DO [facility] ([facility]) [address] [place] [address] 5 07/26/2024 08:16:16 07/31/2024 07:36:55 Benign essential hypertension 3885070 I10 Vascular d ementia without behavioral disturbance 2810509624 1161555 F01.50 Hyperglyce norma due to type 2 diabetes mellitus 6701924294 88813 E11.3213 [id number] Paolo Davies DO [facility] ([facility]) [address] [place] [address] 5 08/17/2024 08:35:31 08/20/2024 14:11:53 [id number] Paolo Davies DO [facility] ([facility]) [address] [place] [address] 5 08/17/2024 08:37:43 08/21/2024 17:50:25 Benign essential hypertension 0623305 I10 Vascular d ementia without behavioral disturbance 5333403942 8700406 F01.50 Hyperglyce norma due to type 2 diabetes mellitus 1153194648 19109 E11.3213 [id number] Paolo Davies DO [facility] ([facility]) [address] [place] [address] 5 09/14/2024 08:02:26 09/19/2024 08:26:17 Benign essential hypertension 6627615 I10 Vascular d ementia without behavioral disturbance 6876504301 9902462 F01.50 Hyperglyce norma due to type 2 diabetes mellitus 2237172392 51993 E11.3213 [id number] Paolo Samson [facility] ([facility]) [address] [place] [address] 5 10/23/2024 14:29:09 10/30/2024 16:14:43 Vascular dementia without behavioral disturbance 8038790224 0080356 F01.50 Hyperglyce norma due to type 2 diabetes mellitus 5804384503 32408 E11.3213 [id number] Paolo Samson [facility] ([facility]) [address] [place] [address] 5 11/16/2024 07:52:58 11/21/2024 11:47:58 Vascular dementia without behavioral disturbance 3903778975 0910316 F01.50 Benign ess ential hypertension 6658408 I10 Hyperglyce norma due to type 2 diabetes mellitus 8884310529 E11.3213 Uveitis 687905353 H20.9 84734 [id number] Paolo Davies [facility] ([facility]) [address] [place] [address] 5 12/18/2024 12:36:15 12/20/2024 07:35:17 Hyperglycemia due to type 2 diabetes mellitus 7889938688 41090 E11.3213 Hypoglycemia 354662634 E 16.2 19296 [id number] Paolo Samson [facility] ([facility]) [address] [place] [address] 5 01/25/2025 10:20:41 01/30/2025 09:17:02 Vascular dementia without behavioral disturbance 6030743508 9110161 F01.50 Benign ess ential hypertension 8627834 I10 Depressive disorder 3548 9007 F32.A Hyperglyce norma due to type 2 diabetes mellitus 5414059174 01726 E11.3213 Hypothyroidism 12794710 E03.9 Anxiety 69559537 F41.9 [id number] Paolo Davies [facility] ([facility]) [address] [place] [address] 5 02/07/2025 15:41:33 02/11/2025 15:20:12 History of fall 269846711 Z91.81 1200452 Atrial fibrillation 4943 6004 I48.91 [id number] Health Concerns Section Related Observation LastModified by Organization Detai ls LastModified Time None Recorded Concern Status LastModified by Organization Details LastModified Time None Recorded Advance Directives Directive None Recorded Payers Insurance Date Sequence Insurance Name Policy Number Policy Maher Covered Member ID Maher Member ID Guarantor Name 02/07/2025 1 [facility] (MEDICARE REPLACEMENT/A DVANTAGE - PPO) [id number] Elida Vegas [id number] Elida Galvan 01/25/2025 2 [place] Elida Mary Anne Galvan [id number] Elida Vegas 01/25/2025 [place] [facility] Elida Galvan [id number] Elida Galvan Notes Date Note Type Note Provider Name and Address Organization Details Recorded Time 5 text/html DiabetesReported by CaregiverHPIFor duration, caregiver reportschronic. For compliance, caregiver reportscompliant with medicationsandcompliant with follow-up visits. For associated symptoms, caregiver reportsno dizziness,no sweats, andno paresthesias.ROS as noted in the HPI No complaints or concerns per pt. Paolo Davise [address], [address], [facility] 10/29/2024 16:03:47 5 text/html DiabetesReported by CaregiverHPIFor duration, caregiver reportschronic. For compliance, caregiver reportscompliant with medicationsandcompliant with follow-up visits. For associated symptoms, caregiver reportsno dizziness,no sweats, andno paresthesias.ROS as noted in the HPI No complaints or concerns per pt. Paolo Davies [address], [address], [facility] 11/20/2024 15:36:25 5 text/html DiabetesReported by CaregiverHPIFor duration, caregiver reportschronic. For compliance, caregiver reportscompliant with medicationsandcompliant with follow-up visits. For associated symptoms, caregiver reportsno dizziness,no sweats, andno paresthesias.ROS as noted in the HPI ER follow up Paolo Davies DO [address] [place] [address], [phone], [facility] 12/18/2024 14:55:41 5 text/html DiabetesReported by CaregiverHPIFor duration, caregiver reportschronic. For compliance, caregiver reportscompliant with medicationsandcompliant with follow-up visits. For associated symptoms, caregiver reportsno dizziness,no sweats, andno paresthesias.ROS as noted in the HPI No complaints or concerns per pt. Paolo Davies DO [address] [place] [address], [phone], [facility] 01/29/2025 15:38:12 5 text/html DiabetesReported by CaregiverHPIFor duration, caregiver reportschronic. For compliance, caregiver reportscompliant with medicationsandcompliant with follow-up visits. For associated symptoms, caregiver reportsno dizziness,no sweats, andno paresthesias.ROS as noted in the HPI seen in ER after unfitness fall, found to be in a fib. Paolo Davies DO [address] [place] [address], [phone], [facility] 02/11/2025 15:20:10 OBGyn Episode No OBEpisode recorded.
--- OUTSIDE RECORDS SUMMARY | 2025-02-11 19:38 | XMS_ITS | Continuity of Care Document ---
Author Organization [facility] Ayana, Lisseth, [facility] ([facility]) Address [address] [place] [address] Assessment No assessment recorded. Plan of Treatment [...] Modified By Organization Details Last Modified Time 01/25/2025 [id number] Feeling well. Sugars controlled. Weight and blood pressure stable. No new orders. [email or web address] Not available 01/25/2025 11:15:19 Reason for Referral None Reported. Problems Name Problem SNOMED Code Status Onset Date Resolution Date Notes Provider Name and Address Organization Details Recorded Time Vascular dementia without behavioral disturbanc e 8577382760664 9109 Active 2022 [facility] 3 12:22:08 Hyperglyce norma due to type 2 diabetes mellitus 4113852900007 09 Active 2022 [facility] 3 12:22:08 Hypothyroi dism 51578122 Active 2022 [facility] 3 12:22:39 Dyspnea 282324496 Active 2022 [facility] 3 15:22:38 Near syncope 838088636 Active 2022 GIRMA ESPINOSA [facility], [facility] 3 15:23:13 Diabetes mellitus 65786270 Active 2022 GIRMA woodard, [facility] 3 15:23:40 Anxiety 91109751 Active 2023 IBRAHIMA NAGEL [facility] 4 13:45:24 Benign essential hypertensi on 4675104 Active 2023 IBRAHIMA NAGEL [facility] 4 13:45:32 Need for personal care assistance 6297794385633 9106 Active 2023 IBRAHIMA NAGEL [facility] 4 13:45:39 Depressive disorder 22339791 Active 2023 IBRAHIMA NAGEL [facility] 4 11:27:09 Abnormal gait 25436781 Active 2024 IBRAHIMA NAGEL [facility] 5 10:40:51 Requires continuous supervisio n for activities of daily living 986956963 Active 2024 IBRAHIMA NAGEL [facility] 5 10:41:30 History of fall 388180190 Active 2024 IBRAHIMA NAGEL [facility] 5 18:10:12 Atrial fibrillati on 95073160 Active 2024 IBRAHIMA NAGEL [facility] 5 18:10:13 Problem Notes None recorded. Medical Equipment None Reported. Allergies Allergen ID Allergen Name Allergen Category Reaction Reaction Severity Criticality Documentation Date Start Date Code Code System Note Provider Name and Address Organization Details Recorded Time 62276 penicilli n G potassium medicatio n Not available Not available Not available 10/10/2022 3 RxNorm Comme nt: Recor ded 05/12 1:08P M by Aparna denton RN, Offic e Visit ; Cris beltran; Cristobal viera ce: *; Reaso n: Drug aller gy; ; [facility] Available [facility] 3 02:28:38 Medications Name Sig Start Date Stop Date Status Note LastModified by Organization Details LastModified Time citalopram 10 mg tablet daily 2020 active 40975; Recorded 12/26/2020 1:52PM by Modesta Gonzalez (Authorize d through Paolo Davies DO), Office Visit; Not Available Not Available Not Available senna 8.6 mg tablet two times daily active 0; Recorded 05/12/2022 1:08PM by Ibrahima Nagel RN, Office Visit; Not Available Not Available Not Available Lantus U-100 Insulin 100 unit/mL subcutaneo us solution at bedtime 2022 active recorded, not sent to pharmacy. dose increase; 28955; Recorded 05/12/2022 1:10PM by Ibrahima Nagel RN [...] Dr. Muniz; 0; Recorded 05/12/2022 1:08PM by Ibrahiam Nagel RN, Office Visit; Not Available Not Available Not Available insulin lispro three times daily 2022 active 69934; Recorded 03/31/2022 10:34AM by Ibrahima Nagel RN [...] Not Available Not Available Vitals Date Recorded Body weight Heart rate Respiratory rate Body temperature Oxygen saturation Systolic And Diastolic Provider Name and Address Organization Details Last Updated DateTime 5 446400. 88 g 81 /min 23 /min 98.5 [degF] 95 % 104/44 mm[Hg] IBRAHIMA NAGEL [facility] 5 11:13:27 Social History Question Answer Notes LastModified by Organizat ion Details LastModified Time Tobacco Smoking Status Unknown If Ever Smoked IBRAHIMA NAGEL [facility] 06/23/2022 16:11:28 Have You Had Direct Contact, Or Contact During Intimacy, With Monkeypox Rash, Scabs, Or Body Fluids From A Person With Monkeypox? No [email or web address] Information not available 06/23/2022 Have You Recently Traveled Abroad? No [email or web address] Information not available 06/23/2022 Sex: Unknown Functional Status Question Answer Note LastModified by Organization D etails LastModified Time Do you have difficulty doing errands alone? Yes [email or web address] Information not available 06/23/2022 Are you able to care for yourself independently? No [email or web address] Information not available 06/23/2022 Do you have difficulty dressing, bathing, grooming, or toileting? Yes [email or web address] Information not available 06/23/2022 Mental Status Question Answer Note LastModified by Organization D etails LastModified Time Do you have difficulty concentrating, remembering or making decisions? Yes [email or web address] Information no t available 06/23/2022 Family History Nothing Reported. Medical History No medical history recorded. Gynecological HistoryNo gynecological history recorded. Obstetrics History GPAL:G 0 P 0 0 0 0 Immunizations Vaccine Type Date Status Note Provider Nam e and Address Organization Details Recorded Time COVID-19, mRNA, LNP-S, PF, 30 mcg/0.3 mL dose 04/12/2020 completed Not Available [facility] 5 15:41:40 COVID-19, mRNA, LNP-S, PF, 30 mcg/0.3 mL dose 05/10/2020 completed [facility] Available [facility] 5 15:41:40 COVID-19, mRNA, LNP-S, PF, 100 mcg/0.5mL dose or 50 mcg/0.25mL dose 06/11/2021 completed Not Available [facility] 5 15:41:40 COVID-19, mRNA, LNP-S, PF, 100 mcg/0.5mL dose or 50 mcg/0.25mL dose 09/30/2021 completed Not Available [facility] 5 15:41:40 COVID-19, mRNA, LNP-S, bivalent, PF, 50 mcg/0.5 mL or 25mcg/0.25 mL dose 01/20/2022 completed Not Available [facility] 5 15:41:40 COVID-19, mRNA, LNP-S, bivalent, PF, 50 mcg/0.5 mL or 25mcg/0.25 mL dose 08/18/2022 completed Not Available [facility] 5 15:41:40 Past Encounters Encounter ID Performer Location Encounter Start Date Encounter Closed Date Diagnosis/Indication Diagnosis SNOMED-CT Code Diagnosis ICD10 Code Diagnosis IMO Codes Diagnosis Note [id number] Paolo Daveis DO [facility]) [address] [place] [address] 01/25/2025 10:20:41 01/30/2025 09:17:02 Vascular dementia without behavioral disturbance 9062523886 6333843 F01.50 Benign ess ential hypertension 8379013 I10 Depressive disorder 3548 9007 F32.A Hyperglyce norma due to type 2 diabetes mellitus 2742687183 60659 E11.3213 Hypothyroidism 50226102 E03.9 Anxiety 64073577 F41.9 Health Concerns Section Related Observation LastModified by Organization Detai ls LastModified Time None Recorded Concern Status LastModified by Organization Details LastModified Time None Recorded Payers Encounter Date Sequence Insurance Name Policy Number Policy Maher Covered Member ID Maher Member ID Guarantor Name 01/25/2025 1 [facility] (MEDICARE REPLACEMENT/A DVANTAGE - PPO) [id number] Elida Galvan [id number] Elida Galvan 01/25/2025 2 [place] Elida Galvan [id number] Elida Galvan Notes Date Note Type Note Provider Name and Address Organization Details Recorded Time 5 text/html DiabetesReported by CaregiverHPIFor duration, caregiver reportschronic. For compliance, caregiver reportscompliant with medicationsandcompliant with follow-up visits. For associated symptoms, caregiver reportsno dizziness,no sweats, andno paresthesias.ROS as noted in the HPI No complaints or concerns per pt. Paolo Davies, DO [address] [place] [address], [place], [address], [facility], Lisseth 01/29/2025 15:38:12 OBGyn Episode No OBEpisode recorded.
--- OUTSIDE RECORDS SUMMARY | 2025-02-11 19:38 | XMS_ITS | Continuity of Care Document ---
Author Organization [facility] Ayana, Lisseth, [facility] ([facility]) Address [address] [place] [address] Assessment No assessment recorded. Plan of Treatment [...] Modified By Organization Details Last Modified Time 02/07/2025 [id number] Sent to ER after un-witnessed fall at group home, while in ER found to be in A fib, she was asymptomatic. Started on metoprolol. In sinus today. Feeling well, mood good. [email or web address] Not available 02/07/2025 18:10:53 Reason for Referral None Reported. Problems Name Problem SNOMED Code Status Onset Date Resolution Date Notes Provider Name and Address Organization Details Recorded Time Vascular dementia without behavioral disturbanc e 1151543334303 9109 Active 2022 [facility] 3 12:22:08 Hyperglyce norma due to type 2 diabetes mellitus 7709693188163 09 Active 2022 [facility] 3 12:22:08 Hypothyroi dism 70117472 Active 2022 [facility] 3 12:22:39 Dyspnea 145857200 Active 2022 GIRMA woodard [facility] 3 15:22:38 Near syncope 066369044 [facility] 20[facility] 3 15:23:13 Diabetes mellitus 36789707 Active 2022 [facility] 3 15:23:40 Anxiety 90533227 Active 2023 IBRAHIMA NAGEL [facility] 4 13:45:24 Benign essential hypertensi on 5621915 Active 2023 IBRAHIMA NAGEL [facility] 4 13:45:32 Need for personal care assistance 5293042621409 9106 Active 2023 IBRAHIMA NAGEL [facility] 4 13:45:39 Depressive disorder 36980331 Active 2023 IBRAHIMA NAGEL [facility] 4 11:27:09 Abnormal gait 30099598 Active 2024 IBRAHIMAANAIS NAGEL [facility] 5 10:40:51 Requires continuous supervisio n for activities of daily living 227150109 Active 2024 IBRAHIMA NAGEL [facility] 5 10:41:30 History of fall 818214302 Active 2024 IBRAHIMA NAGEL [facility] 5 18:10:12 Atrial fibrillati on 28069898 Active 2024 IBRAHIMA NAGEL [facility] 5 18:10:13 Problem Notes None recorded. Medical Equipment None Reported. Allergies Allergen ID Allergen Name Allergen Category Reaction Reaction Severity Criticality Documentation Date Start Date Code Code System Note Provider Name and Address Organization Details Recorded Time 05987 penicilli n G potassium medicatio n Not available Not available Not available 10/10/2022 3 RxNorm Comme nt: Recor ded 05/12 1:08P M by Aparna denton RN, Offic e Visit ; Promo ruby; Cristobal viera ce: *; Reaso n: Drug aller gy; ; [facility] Available [facility] 3 02:28:38 Medications Name Sig Start Date Stop Date Status Note LastModified by Organization Details LastModified Time citalopram 10 mg tablet daily 2020 active 33776; Recorded 12/26/2020 1:52PM by Modesta Gonzalez (Authorize d through Paolo Davies DO), Office Visit; Not Available Not Available Not Available senna 8.6 mg tablet two times daily active 0; Recorded 05/12/2022 1:08PM by Ibrahima Nagel RN, Office Visit; Not Available Not Available Not Available Lantus U-100 Insulin 100 unit/mL subcutaneo us solution at bedtime 2022 active recorded, not sent to pharmacy. dose increase; 23366; Recorded 05/12/2022 1:10PM by Ibrahima Nagel RN [...] insulin lispro three times daily 2022 active 85078; Recorded 03/31/2022 10:34AM by Ibrahima Nagel RN [...] Address Organization Details Last Updated DateTime 5 070799. 69 g 88 /min 27 /min 97.9 [degF] 94 % 110/62 mm[Hg] IBRAHIMA NAGEL [facility] 5 18:08:35 Social History Question Answer Notes LastModified by Organizat ion Details LastModified Time Tobacco Smoking Status Unknown If Ever Smoked IBRAHIMA [email or web address] [facility] 06/23/2022 16:11:28 Have You Had Direct Contact, Or Contact During Intimacy, With Monkeypox Rash, Scabs, Or Body Fluids From A Person With Monkeypox? No Information not available 06/23/2022 Have You Recently Traveled Abroad? No Information not available 06/23/2022 Sex: Unknown Functional Status Question Answer Note LastModified by Organization D etails LastModified Time Do you have difficulty doing errands alone? Yes [email or web address] Information not available 06/23/2022 Are you able to care for yourself independently? No [email or web address] Information not available 06/23/2022 Do you have difficulty dressing, bathing, grooming, or toileting? Yes Information not available 06/23/2022 Mental Status Question Answer Note LastModified by Organization D etails LastModified Time Do you have difficulty concentrating, remembering or making decisions? Yes [email or web address] Information no t available 06/23/2022 Family History Nothing Reported. Medical History No medical history recorded. Gynecological HistoryNo gynecological history recorded. Obstetrics History GPAL:G 0 P 0 0 0 0 Immunizations Vaccine Type Date Status Note Provider Nam e and Address Organization Details Recorded Time COVID-19, mRNA, LNP-S, PF, 30 mcg/0.3 mL dose 04/12/2020 completed Not Available [facility] 5 15:41:40 COVID-19, mRNA, LNP-S, PF, 30 mcg/0.3 mL dose 05/10/2020 completed Not Available [facility] 5 15:41:40 COVID-19, mRNA, LNP-S, PF, 100 mcg/0.5mL dose or 50 mcg/0.25mL dose 06/11/2021 completed Not Available [facility] 5 15:41:40 COVID-19, mRNA, LNP-S, PF, 100 mcg/0.5mL dose or 50 mcg/0.25mL dose 09/30/2021 completed Not Available [facility] 5 15:41:40 COVID-19, mRNA, LNP-S, bivalent, PF, 50 mcg/0.5 mL or 25mcg/0.25 mL dose 01/20/2022 completed Not Available [facility] 5 15:41:40 COVID-19, mRNA, LNP-S, bivalent, PF, 50 mcg/0.5 mL or 25mcg/0.25 mL dose 08/18/2022 completed Not Available [facility] 5 15:41:40 Past Encounters Encounter ID Performer Location Encounter Start Date Encounter Closed Date Diagnosis/Indication Diagnosis SNOMED-CT Code Diagnosis ICD10 Code Diagnosis IMO Codes Diagnosis Note [id number] Paolo Davies DO [facility]) [address] [place] [address] 01/25/2025 10:20:41 01/30/2025 09:17:02 Vascular dementia without behavioral disturbance 3948584397 8947479 F01.50 Benign ess ential hypertension 8191349 I10 Depressive disorder 3548 9007 F32.A Hyperglyce norma due to type 2 diabetes mellitus 7845962410 25304 E11.3213 Hypothyroidism 49378249 E03.9 Anxiety 80584878 F41.9 [id number] Paolo Davies DO [facility]) [address] [place] [phone] 5 02/07/2025 15:41:33 02/11/2025 15:20:12 History of fall 272251731 Z91.81 0529677 Atrial fibrillation 4943 6004 I48.91 [id number] Health Concerns Section Related Observation LastModified by Organization Detai ls LastModified Time None Recorded Concern Status LastModified by Organization Details LastModified Time None Recorded Payers Encounter Date Sequence Insurance Name Policy Number Policy Maher Covered Member ID Maher Member ID Guarantor Name 02/07/2025 1 [facility] (MEDICARE REPLACEMENT/A DVANTAGE - PPO) [id number] Elida Galvan [id number] Elida Galvan 02/07/2025 2 [place] Elida Galvan [id number] Elida Galvan Notes Date Note Type Note Provider Name and Address Organization Details Recorded Time text/html DiabetesReported by CaregiverHPIFor duration, caregiver reportschronic. For compliance, caregiver reportscompliant with medicationsandcompliant with follow-up visits. For associated symptoms, caregiver reportsno dizziness,no sweats, andno paresthesias.ROS as noted in the HPI seen in ER after unfitness fall, found to be in a fib. Paolo Davies, DO [address] [place] [address], [phone], [facility] 02/11/2025 15:20:10 OBGyn Episode No OBEpisode recorded.
--- NOTE | 2025-02-11 20:02 | XRR_ITS ---
PROCEDURE INFORMATION: Exam: XR Right Shoulder Exam date and time: 02/11/2025 8:02 PM Age: 79 years old Clinical indication: Injury or trauma; Fall; Blunt trauma (contusions or hematomas); Shoulder; Right; Additional info: Fall right shoulder pain TECHNIQUE: Imaging protocol: Radiologic exam of the right shoulder. Views: 2 or more views. COMPARISON: CR (CHEST, ) 02/06/2025 4:35 AM FINDINGS: Bones/joints: Equivocal fracture to the superior aspect of the scapula as well as the lateral aspect of the clavicle, decreased bone mineral density limits evaluation, CT scan advised for further evaluation. Rotator cuff calcific tendinitis. Lungs: Right lung ground-glass airspace opacities reflecting alveolar edema and/or pneumonic infiltrate. Soft tissues: Normal. XR/XR shoulder RT min 2V* [id number] IMPRESSION: 1. Equivocal fracture to the superior aspect of the scapula as well as the lateral aspect of the clavicle, decreased bone mineral density limits evaluation, CT scan advised for further evaluation. 2. Rotator cuff calcific tendinitis. 3. Right lung ground-glass airspace opacities reflecting alveolar edema and/or pneumonic infiltrate.
--- NOTE | 2025-02-11 20:02 | CTR_ITS ---
PROCEDURE INFORMATION: Exam: CT Cervical Spine Without Contrast Exam date and time: 02/11/2025 8:18 PM Age: 79 years old Clinical indication: Injury or trauma; Blunt trauma; EMS arrival for unwitnessed fall. Focal C/O neck pain. History of dementia. ; Additional info: Fall neck pain TECHNIQUE: Imaging protocol: Computed tomography of the cervical spine without contrast. Radiation optimization: All CT scans at this facility use at least one of these dose optimization techniques: automated exposure control; mA and/or kV adjustment per patient size (includes targeted exams where dose is matched to clinical indication); or iterative reconstruction. COMPARISON: CT head wo con* [id number] 02/11/2025 8:16 PM RADIATION DOSE METRICS: Total DLP (mGy-cm): 589.77 FINDINGS: Bones/joints: Retrolisthesis of C3 relative to C4 of 2.9 mm appears chronic and degenerative. Retrolisthesis of C5 relative to C6 of 1.7 mm appears chronic and degenerative. Multilevel moderate to severe disc space narrowing and productive degenerative endplate changes throughout the spine. C2-C3: No significant disc bulge or herniation. No severe spinal canal stenosis. No significant neural foraminal narrowing. C3-C4: No significant disc bulge or herniation. No severe spinal canal stenosis. No significant neural foraminal narrowing. C4-C5: No significant disc bulge or herniation. No severe spinal canal stenosis. No significant neural foraminal narrowing. C5-C6: No significant disc bulge or herniation. No severe spinal canal stenosis. No significant neural foraminal narrowing. C6-C7: No significant disc bulge or herniation. No severe spinal canal stenosis. No significant neural foraminal narrowing. C7-T1: No significant disc bulge or herniation. No severe spinal canal stenosis. No significant neural foraminal narrowing. Lungs: Right upper lobe pneumonia incompletely visualized, dedicated chest CT advised for further evaluation. Vasculature: Carotid artery atherosclerotic calcifications. Soft tissues: Unremarkable. CT/CT cervical spin wo con* [id number] IMPRESSION: 1. Negative for fracture or dislocation. 2. Retrolisthesis of C3 relative to C4 of 2.9 mm appears chronic and degenerative. 3. Retrolisthesis of C5 relative to C6 of 1.7 mm appears chronic and degenerative. 4. Multilevel moderate to severe disc space narrowing and productive degenerative endplate changes throughout the spine. 5. Carotid artery atherosclerotic calcifications. 6. Right upper lobe pneumonia incompletely visualized, dedicated chest CT advised for further evaluation.
--- NOTE | 2025-02-11 20:02 | CTR_ITS ---
PROCEDURE INFORMATION: Exam: CT Head Without Contrast Exam date and time: 02/11/2025 8:16 PM Age: 79 years old Clinical indication: Injury or trauma; Blunt trauma (contusions or hematomas); EMS arrival for unwitnessed fall. Focal C/O neck pain. History of dementia. ; Additional info: Fall, unwitnessed, neck pain TECHNIQUE: Imaging protocol: Computed tomography of the head without contrast. Radiation optimization: All CT scans at this facility use at least one of these dose optimization techniques: automated exposure control; mA and/or kV adjustment per patient size (includes targeted exams where dose is matched to clinical indication); or iterative reconstruction. COMPARISON: No relevant prior studies available. RADIATION DOSE METRICS: Total DLP (mGy-cm): 1176.75 FINDINGS: Brain: Large amount of diffuse white matter disease likely reflecting chronic microvascular ischemic changes with a right occipital lobe chronic infarct. Cerebral ventricles: No ventriculomegaly. Paranasal sinuses: Visualized sinuses are unremarkable. No fluid levels. Mastoid air cells: Visualized mastoid air cells are well aerated. Bones: Unremarkable. No acute fracture. Soft tissues: Unremarkable. CT/CT head wo con* [id number] IMPRESSION: 1. Negative for intracranial hemorrhage or mass effect. 2. Large amount of diffuse white matter disease likely reflecting chronic microvascular ischemic changes with a right occipital lobe chronic infarct.
--- NOTE | 2025-02-11 20:02 | XRR_ITS ---
PROCEDURE INFORMATION: Exam: XR Right Hip Exam date and time: 02/11/2025 8:07 PM Age: 79 years old Clinical indication: Injury or trauma; Fall; Blunt trauma (contusions or hematomas); Right; Hip and pelvic region; Prior surgery; Surgery date: 6+ months; Surgery type: Raul hip; Additional info: Fall R hip pain TECHNIQUE: Imaging protocol: Radiologic exam of the right hip. Views: 1 view hip with pelvis when performed. COMPARISON: CR (PELVIS, ) 03/22/2022 5:51 AM FINDINGS: Bones/joints: Right hip arthroplasty changes in place. Soft tissues: Unremarkable. Vasculature: Scattered vascular calcifications. Other findings: Benign calcifications over the pelvis. XR/XR hip RT 2-3V wo/w pel* [id number] IMPRESSION: 1. Right hip arthroplasty changes in place. 2. Scattered vascular calcifications. 3. Benign calcifications over the pelvis.
--- NOTE | 2025-02-11 20:08 | XRR_ITS ---
PROCEDURE INFORMATION: Exam: XR Chest Exam date and time: 02/11/2025 8:06 PM Age: 79 years old Clinical indication: Injury or trauma; Fall; Blunt trauma (contusions or hematomas) TECHNIQUE: Imaging protocol: Radiologic exam of the chest. Views: 1 view. COMPARISON: CR (CHEST, ) 02/06/2025 4:35 AM FINDINGS: Lungs: Right lung ground-glass airspace opacity reflecting alveolar edema and/or pneumonic infiltrates. Pleural spaces: Unremarkable. No pleural effusion. No pneumothorax. Heart/Mediastinum: Cardiomegaly and pulmonary vascular congestion. Bones/joints: Refer to right shoulder radiograph report for additional findings. XR/XR chest 1V portable [id number] IMPRESSION: 1. Cardiomegaly and pulmonary vascular congestion. 2. Right lung ground-glass airspace opacity reflecting alveolar edema and/or pneumonic infiltrates. 3. Refer to right shoulder radiograph report for additional findings.
--- NOTE | 2025-02-11 20:45 | W.ED.FALL ---
HPI - Fall General: Chief Complaint: Fall Stated Complaint: right hip and back pain post fall History of Present Illness: 79-year-old female senior care patient with a history of dementia. She presents after reported fall in the senior care. The patient herself does not remember falling. She evidently complained of right shoulder and hip pain and trouble moving her neck following the fall. She has numbness complaints now. She states she is in no pain Related Data Home Medications ?Medication ?Instructions ?Recorded ?Confirmed acetaminophen 325 mg tablet 650 mg PO BID 09/24/24 12/17/24 (Tylenol) acetaminophen 325 mg tablet 650 mg PO Q4H PRN Pain 09/24/24 12/17/24 (Tylenol) bisacodyl 10 mg rectal suppository 10 mg ME DAILY PRN Constipation 09/24/24 12/17/24 (Dulcolax (bisacodyl)) brimonidine 0.1 % eye drops 1 drp ophthalmic (eye) BID 09/24/24 12/17/24 (Alphagan P) Held on 11/11/24. Instructions: Resume on 11/14/24. clopidogrel 75 mg tablet (Plavix) 75 mg PO DAILY 09/24/24 12/17/24 hydrocodone 5 mg-acetaminophen 325 1 tab PO .Q4-6H PRN pain 09/24/24 12/17/24 mg tablet insulin glargine 100 unit/mL (3 72 unit SUBCUT BEDTIME 09/24/24 12/17/24 mL) subcutaneous pen (Lantus Solostar U-100 Insulin) insulin lispro 100 unit/mL 30 unit SUBCUT TID 09/24/24 12/17/24 subcutaneous solution latanoprost (PF) 0.005 % eye drops 1 drp ophthalmic (eye) BEDTIME 09/24/24 12/17/24 in a dropperette levothyroxine 50 mcg tablet 50 mcg PO QAM 09/24/24 12/17/24 (Euthyrox) magnesium hydroxide 400 mg/5 mL 30 ml PO DAILY PRN Constipation 09/24/24 12/17/24 oral suspension (Milk of Magnesia) ondansetron HCl 4 mg tablet 4 mg PO Q4H PRN Nausea 09/24/24 12/17/24 pantoprazole 40 mg tablet,delayed 40 mg PO DAILY 09/24/24 12/17/24 release phenylephrine 0.25 %-pramoxine 1 1 applic ME BID PRN Hemorrhoids 09/24/24 12/17/24 %-glycerin-wh.petrolatum rectal cream (Preparation H Maximum Strength) polyethylene glycol 3350 17 17 g PO DAILY 09/24/24 12/17/24 gram/dose oral powder (Miralax) sertraline 50 mg tablet (Zoloft) 75 mg PO BEDTIME 09/24/24 12/17/24 sodium chloride 1,000 mg soluble 1,000 mg PO DAILY 09/24/24 12/17/24 tablet nitroglycerin 0.4 mg sublingual 0.4 mg sublingual Q5M PRN Chest 12/17/24 12/17/24 tablet (Nitrostat) Pain prednisolone acetate 1 % eye 1 drp ophthalmic (eye) QID 12/17/24 12/17/24 drops,suspension Previous Rx's ?Medication ?Instructions ?Recorded aspirin 325 mg capsule 325 mg PO DAILY #30 caps 02/06/25 metoprolol succinate 25 mg 25 mg PO DAILY #30 tabs 02/06/25 tablet,extended release 24 hr (Toprol XL) levofloxacin 750 mg tablet 750 mg PO DAILY 7 days #7 tabs 02/11/25 Allergies Allergy/AdvReac Type Severity Reaction Status Date / Time Penicillins Allergy Unknown Verified 09/24/24 13:08 Physical Exam Const: COMMON NORMALS: no acute distress and alert HENMT: COMMON NORMALS: normocephalic and atraumatic HEAD & SCALP: normocephalic and atraumatic FACE & SINUS: normal facial exam Eye: COMMON NORMALS: Equal, round and reactive pupils present and EOMs intact bilaterally PUPIL: Yes Equal, round and reactive pupils present Neck/C-Spine: COMMON NORMALS: full ROM and supple GENERAL: Yes trachea midline CERVICAL SPINE: No Cervical spine tenderness Chest: CHEST: Yes Symmetrical chest wall rise Resp: COMMON NORMALS: normal respiratory effort, No use of accessory muscles and clear to auscultation bilaterally AUSCULTATION: clear to auscultation bilaterally Cardio: COMMON NORMALS: regular rate and regular rhythm RATE: regular rate RHYTHM: regular rhythm GI: COMMON NORMALS: Soft to palpation PALPATION: Yes Soft to palpation and Yes Tenderness to palpation present (GI) : COMMON NORMALS: Yes no CVA tenderness BLADDER/KIDNEY EXAM: Yes no CVA tenderness Back/Pelvis: COMMON NORMALS: no CVA tenderness Extremity: NARRATIVE EXTREMITY EXAM: Examination of right shoulder reveals no deformity. Minimal tenderness. Minimal pain with movement. Pulses are intact distally. Examination of the right lower extremity reveals no deformity. No pain on logroll testing. No tenderness. Neuro: SENSORIUM/ORIENTATION: Yes alert Course Vital Signs: Vital signs: Vital Signs Temperature 98.1 F 02/11/25 19:20 Pulse Rate 72 02/11/25 22:20 Respiratory Rate 24 H 02/11/25 19:20 Blood Pressure 136/81 02/11/25 22:20 Pulse Oximetry 98 02/11/25 22:20 Oxygen Delivery Me thod Nasal Cannula 02/11/25 21:01 Oxygen Flow Rate 3 02/11/25 21:01 MDM - Fall Medical Decision Making CT head negative. X-rays of the hip negative for fracture. X-ray of the right shoulder reveals potential fracture in the superior aspect of the scapula. She is not tender in this area. On my read, no fracture is seen. Even so, these fractures are nonoperative and do not require intervention. She will be placed in a sling for comfort, which would be a treatment for such a fracture should it exist. The patient does have a right upper lobe ground glass opacity appearing to be a pneumonia on chest x-ray. She is afebrile here. Saturations been normal on home oxygen settings. No signs of sepsis. She be treated with antibiotics for this. She may go back to the senior care, to return for any worsening symptoms despite treatment Lab Data Radiology Impressions Cervical Spine CT 02/11/25 20:02 IMPRESSION: 1. Negative for fracture or dislocation. 2. Retrolisthesis of C3 relative to C4 of 2.9 mm appears chronic and degenerative. 3. Retrolisthesis of C5 relative to C6 of 1.7 mm appears chronic and degenerative. 4. Multilevel moderate to severe disc space narrowing and productive degenerative endplate changes throughout the spine. 5. Carotid artery atherosclerotic calcifications. 6. Right upper lobe pneumonia incompletely visualized, dedicated chest CT advised for further evaluation. Head CT 02/11/25 20:02 IMPRESSION: 1. Negative for intracranial hemorrhage or mass effect. 2. Large amount of diffuse white matter disease likely reflecting chronic microvascular ischemic changes with a right occipital lobe chronic infarct. Hip/Pelvis X-Ray 02/11/25 20:02 IMPRESSION: 1. Right hip arthroplasty changes in place. 2. Scattered vascular calcifications. 3. Benign calcifications over the pelvis. Shoulder X-Ray 02/11/25 20:02 IMPRESSION: 1. Equivocal fracture to the superior aspect of the scapula as well as the lateral aspect of the clavicle, decreased bone mineral density limits evaluation, CT scan advised for further evaluation. 2. Rotator cuff calcific tendinitis. 3. Right lung ground-glass airspace opacities reflecting alveolar edema and/or pneumonic infiltrate. Chest X-Ray 02/11/25 20:08 IMPRESSION: 1. Cardiomegaly and pulmonary vascular congestion. 2. Right lung ground-glass airspace opacity reflecting alveolar edema and/or pneumonic infiltrates. 3. Refer to right shoulder radiograph report for additional findings. All radiology interpretation(s) finalized by discharge Discharge Plan Discharge Patient Disposition: Home Clinical Impression: Contusion of shoulder, right, Pneumonia Condition: Stable Prescriptions: New levofloxacin 750 mg tablet 750 mg PO DAILY 7 Days Qty: 7 0RF No Action prednisolone acetate 1 % drops,suspension 1 drp ophthalmic (eye) QID nitroglycerin [Nitrostat] 0.4 mg Tablet, Sublingual 0.4 mg SUBLINGUAL Q5M PRN (Reason: Chest Pain) Rx Instructions: do not exceed 3 doses per episode acetaminophen [Tylenol] 325 mg Tablet 650 mg PO BID acetaminophen [Tylenol] 325 mg Tablet 650 mg PO Q4H PRN (Reason: Pain) ondansetron HCl 4 mg Tablet 4 mg PO Q4H PRN (Reason: Nausea) clopidogrel [Plavix] 75 mg Tablet 75 mg PO DAILY magnesium hydroxide [Milk of Magnesia] 400 mg/5 mL Suspension 30 ml PO DAILY PRN (Reason: Constipation) levothyroxine [Euthyrox] 50 mcg Tablet 50 mcg PO QAM bisacodyl [Dulcolax (bisacodyl)] 10 mg Suppository 10 mg ME DAILY PRN (Reason: Constipation) pantoprazole 40 mg Tablet,Delayed Release (Dr/Ec) 40 mg PO DAILY insulin lispro 100 unit/mL Solution 30 unit SUBCUT TID polyethylene glycol 3350 [Miralax] 17 gram/dose Powder 17 g PO DAILY sertraline [Zoloft] 50 mg Tablet 75 mg PO BEDTIME brimonidine [Alphagan P] 0.1 % Drops 1 drp OPHTHALMIC (EYE) BID sodium chloride 1,000 mg Tablet,Soluble 1,000 mg PO DAILY Preparation H Maximum Strength 0.25-1 % Cream 1 applic ME BID PRN (Reason: Hemorrhoids) insulin glargine [Lantus Solostar U-100 Insulin] 100 unit/mL (3 mL) Insulin Pen 72 unit SUBCUT BEDTIME latanoprost (PF) 0.005 % Dropperette 1 drp ophthalmic (eye) BEDTIME hydrocodone-acetaminophen 5-325 mg tablet 1 tab PO .Q4-6H PRN (Reason: pain) metoprolol succinate [Toprol XL] 25 mg tablet extended release 24 hr 25 mg PO DAILY Qty: 30 0RF aspirin 325 mg capsule 325 mg PO DAILY Qty: 30 0RF Discharge Orders: Discharge ED (Routine); Ordered 02/11/25 Ordered By: Fabio Vitale Referrals: Chelita Miller MD [Primary Care Provider, Internal Medicine] - 1-3 days Patient Instructions: Pneumonia (ED), Shoulder Pain (ED), Opioid Safety, Pain Management, Patient Portal & Alexandrea Instructions Activity Restrictions/Additional Instructions: Antibiotics as directed for right-sided pneumonia. Sling for comfort for the shoulder, but no longer than 5 or 5 days or so. Return for any problems. See your doctor next week. Print Language: Colombian Coding Level of Care Code ED Sexologist for Radha Javed
[2025-02-11 21:01] VITALS: BP 146/82; PULSE 73; O2SAT 98
[2025-02-11 22:20] VITALS: BP 136/81; PULSE 72; O2SAT 98
== END 2025-02-11 22:57 | disposition home or self-care (01) ==
PROVIDERS: Emergency Provider Emergency Medicine; PCP Internal Medicine
DX: S40.011A Contusion of right shoulder, initial encounter (principal); J18.9 Pneumonia, unspecified organism; Z79.02 Long term (current) use of antithrombotics/antiplatelets; Z79.4 Long term (current) use of insulin; Z79.82 Long term (current) use of aspirin; W19.XXXA Unspecified fall, initial encounter; F03.90 Unspecified dementia, unspecified severity, without behavioral disturbance, psychotic disturbance, mood disturbance, and anxiety
CPT/HCPCS: 70450; 71045; 72125; 73030; 73502; 99284; J9999

== ENCOUNTER 2025-02-25 11:25 | Emergency (ER) | payer MEDICARE, MEDICAID, SELFPAY ==
--- NOTE | 2025-02-25 11:29 | XRR_ITS ---
PROCEDURE INFORMATION: Exam: XR Chest Exam date and time: 02/25/2025 11:41 AM Age: 79 years old Clinical indication: Shortness of breath; Additional info: SOB TECHNIQUE: Imaging protocol: Radiologic exam of the chest. Views: 1 view. COMPARISON: CR (CHEST, ) 02/11/2025 8:06 PM FINDINGS: Lungs: Scary mild interstitial opacities are seen in the lung periphery and bases. No consolidation. Overall improved pulmonary aeration. Pleural spaces: Unremarkable. No pleural effusion. No pneumothorax. Heart/Mediastinum: Unremarkable. No cardiomegaly. Bones/joints: Unremarkable. XR/XR chest 1V portable [id number] IMPRESSION: Bilateral interstitial opacities with a peripheral predominance.
[2025-02-25 11:30] VITALS: BP 126/81; PULSE 87; RESP 18; TEMP 37; O2SAT 95; BMI 29.0
--- NOTE | 2025-02-25 11:33 | W.ED.WEAKNES ---
HPI - Weakness General: Chief complaint: Weakness Stated complaint: hypotension Time Seen by Provider: 02/25/25 11:25 Source: patient and EMS Mode of arrival: EMS Limitations: no limitations History of Present Illness: 79-year-old female who is here from senior care they are concerned if she had had some low blood pressure readings this morning after they given her Lasix. Patient here has no complaints she states she feels fine her blood pressure here is currently 120/56. She denies any shortness of breath currently denies any fevers. Related Data Home Medications ?Medication ?Instructions ?Recorded ?Confirmed acetaminophen 325 mg tablet 650 mg PO BID 09/24/24 12/17/24 (Tylenol) acetaminophen 325 mg tablet 650 mg PO Q4H PRN Pain 09/24/24 12/17/24 (Tylenol) bisacodyl 10 mg rectal suppository 10 mg MT DAILY PRN Constipation 09/24/24 12/17/24 (Dulcolax (bisacodyl)) brimonidine 0.1 % eye drops 1 drp ophthalmic (eye) BID 09/24/24 12/17/24 (Alphagan P) Held on 11/11/24. Instructions: Resume on 11/14/24. clopidogrel 75 mg tablet (Plavix) 75 mg PO DAILY 09/24/24 12/17/24 hydrocodone 5 mg-acetaminophen 325 1 tab PO .Q4-6H PRN pain 09/24/24 12/17/24 mg tablet insulin glargine 100 unit/mL (3 72 unit SUBCUT BEDTIME 09/24/24 12/17/24 mL) subcutaneous pen (Lantus Solostar U-100 Insulin) insulin lispro 100 unit/mL 30 unit SUBCUT TID 09/24/24 12/17/24 subcutaneous solution latanoprost (PF) 0.005 % eye drops 1 drp ophthalmic (eye) BEDTIME 09/24/24 12/17/24 in a dropperette levothyroxine 50 mcg tablet 50 mcg PO QAM 09/24/24 12/17/24 (Euthyrox) magnesium hydroxide 400 mg/5 mL 30 ml PO DAILY PRN Constipation 09/24/24 12/17/24 oral suspension (Milk of Magnesia) ondansetron HCl 4 mg tablet 4 mg PO Q4H PRN Nausea 09/24/24 12/17/24 pantoprazole 40 mg tablet,delayed 40 mg PO DAILY 09/24/24 12/17/24 release phenylephrine 0.25 %-pramoxine 1 1 applic MT BID PRN Hemorrhoids 09/24/24 12/17/24 %-glycerin-wh.petrolatum rectal cream (Preparation H Maximum Strength) polyethylene glycol 3350 17 17 g PO DAILY 09/24/24 12/17/24 gram/dose oral powder (Miralax) sertraline 50 mg tablet (Zoloft) 75 mg PO BEDTIME 09/24/24 12/17/24 sodium chloride 1,000 mg soluble 1,000 mg PO DAILY 09/24/24 12/17/24 tablet nitroglycerin 0.4 mg sublingual 0.4 mg sublingual Q5M PRN Chest 12/17/24 12/17/24 tablet (Nitrostat) Pain prednisolone acetate 1 % eye 1 drp ophthalmic (eye) QID 12/17/24 12/17/24 drops,suspension Previous Rx's ?Medication ?Instructions ?Recorded aspirin 325 mg capsule 325 mg PO DAILY #30 caps 02/06/25 metoprolol succinate 25 mg 25 mg PO DAILY #30 tabs 02/06/25 tablet,extended release 24 hr (Toprol XL) Allergies Allergy/AdvReac Type Severity Reaction Status Date / Time Penicillins Allergy Unknown Verified 09/24/24 13:08 Physical Exam Const: COMMON NORMALS: no acute distress, patient oriented x3 and healthy appearing HENMT: COMMON NORMALS: normocephalic and atraumatic HEAD & SCALP: normocephalic and atraumatic Eye: COMMON NORMALS: Equal, round and reactive pupils present and EOMs intact bilaterally PUPIL: Yes Equal, round and reactive pupils present Neck/C-Spine: COMMON NORMALS: full ROM and supple Chest: COMMONS NORMALS: normal inspection of the chest and normal palpation of entire chest wall Resp: COMMON NORMALS: normal respiratory effort, No retractions, No use of accessory muscles and clear to auscultation bilaterally AUSCULTATION: clear to auscultation bilaterally Cardio: COMMON NORMALS: regular rate, regular rhythm and No murmurs present (Cardio) RATE: regular rate RHYTHM: regular rhythm GI: COMMON NORMALS: Normal to inspection, nondistended, normoactive bowel sounds present, Soft to palpation, non-tender and no masses PALPATION: Yes Soft to palpation Extremity: COMMON NORMALS: normal to inspection and full ROM Neuro: COMMON NORMALS: patient oriented x3, moves all extremities and no focal motor deficits Psych: COMMON NORMALS: mental status grossly normal, Normal thought process present and cooperative THOUGHT PROCESS: Normal thought process present Skin: COMMON NORMALS: no rashes or lesions noted and no wounds GENERAL SKIN EXAM: no rashes or lesions noted Course Vital Signs: Vital signs: Vital Signs Temperature 98.6 F 02/25/25 11:30 Pulse Rate 68 02/25/25 12:23 Respiratory Rate 22 H 02/25/25 12:16 Blood Pressure 118/64 02/25/25 12:23 Pulse Oximetry 99 02/25/25 12:23 Oxygen Delivery Me thod Room Air 02/25/25 11:30 MDM - Weakness Medical Decision Making 79-year-old female who presented here from senior care with concern of hypotension her blood pressure has been normal the whole time she has been here she has been in no distress lab work showed no significant abnormalities does have a history of CHF x-ray does show some signs of congestive heart failure she is not in any respiratory distress does not require admission and she is stable for discharge back to senior care. Medical Records I reviewed the patient's medical records. Lab Data I reviewed the patient's lab results. 02/25/25 11:30 02/25/25 11:30 Radiology Impressions Chest X-Ray 02/25/25 11:29 IMPRESSION: Bilateral interstitial opacities with a peripheral predominance. Laboratory Results WBC 8.74 10^3/uL (3.29-11.43) 02/25/25 11:30 RBC 3.90 10^6/uL (3.85-5.65) 02/25/25 11:30 Hgb 10.30 g/dL (11.27-16.99) L 02/25/25 11:30 Hct 34.8 % (36-47) L 02/25/25 11:30 MCV 89.2 fl (85-98) 02/25/25 11:30 MCH 26.4 pg (27-33) L 02/25/25 11:30 MCHC 29.6 g/dL (30-55) L 02/25/25 11:30 RDW 15.1 % (12.1-15.1) 02/25/25 11:30 Plt Count 404 10^3/cmm (157-399) H 02/25/25 11:30 MPV 8.9 fL (7.4-10.4) 02/25/25 11:30 Neut % (Auto) 76.2 % 02/25/25 11:30 Lymph % (Auto) 15.4 % 02/25/25 11:30 [place] % (Auto) 5.8 % 02/25/25 11:30 Eos % (Auto) 1.7 % 02/25/25 11:30 Baso % (Auto) 0.3 % 02/25/25 11:30 Neut # (Auto) 6.65 10^3/uL (1.8-7.7) 02/25/25 11:30 Lymph # (Auto) 1.4 10^3/uL (0.8-4.8) 02/25/25 11:30 [place] # (Auto) 0.5 10^3/uL (0.2-0.9) 02/25/25 11:30 Eos # (Auto) 0.2 10^3/uL (0.0-0.8) 02/25/25 11:30 Baso # (Auto) 0.0 10^3/uL (0.0-0.1) 02/25/25 11:30 Nucleated RBC % (auto) 0 % 02/25/25 11:30 Nucleated RBCs # 0.0 /100WBC 02/25/25 11:30 Sodium 139 mmol/L (136-145) 02/25/25 11:30 Potassium 4.4 mmol/L (3.5-5.1) 02/25/25 11:30 Chloride 98 mmol/L (98-107) 02/25/25 11:30 Carbon Dioxide 30 mmol/L (22-29) H 02/25/25 11:30 Anion Gap 15.4 (5-19) 02/25/25 11:30 BUN 18 mg/dL (8-23) 02/25/25 11:30 Creatinine 1.0 mg/dL (0.5-0.9) H 02/25/25 11:30 GFR Calculation Not Reportable 02/25/25 11:30 Glucose 269 mg/dL (65-115) H 02/25/25 11:30 Calculated Osmolality 299 mOsm/kg (285-295) H 02/25/25 11:30 Calcium 8.7 mg/dL (8.5-10.5) 02/25/25 11:30 Total Bilirubin 0.5 mg/dL (0.15-1.2) 02/25/25 11:30 AST 16 U/L (0-32) 02/25/25 11:30 ALT 15 U/L (0-33) 02/25/25 11:30 Alkaline Phosphatase 112 U/L (35-105) H 02/25/25 11:30 Total Protein 7.5 g/dL (6.6-8.7) 02/25/25 11:30 Albumin 3.8 g/dL (3.5-5.2) 02/25/25 11:30 Globulin 3.7 g/dL (1.3-4.6) 02/25/25 11:30 All radiology interpretation(s) finalized by discharge Discharge Plan Discharge Patient Disposition: Home Clinical Impression: CHF (congestive heart failure) Condition: Stable Prescriptions: No Action prednisolone acetate 1 % drops,suspension 1 drp ophthalmic (eye) QID nitroglycerin [Nitrostat] 0.4 mg Tablet, Sublingual 0.4 mg SUBLINGUAL Q5M PRN (Reason: Chest Pain) Rx Instructions: do not exceed 3 doses per episode acetaminophen [Tylenol] 325 mg Tablet 650 mg PO BID acetaminophen [Tylenol] 325 mg Tablet 650 mg PO Q4H PRN (Reason: Pain) ondansetron HCl 4 mg Tablet 4 mg PO Q4H PRN (Reason: Nausea) clopidogrel [Plavix] 75 mg Tablet 75 mg PO DAILY magnesium hydroxide [Milk of Magnesia] 400 mg/5 mL Suspension 30 ml PO DAILY PRN (Reason: Constipation) levothyroxine [Euthyrox] 50 mcg Tablet 50 mcg PO QAM bisacodyl [Dulcolax (bisacodyl)] 10 mg Suppository 10 mg MT DAILY PRN (Reason: Constipation) pantoprazole 40 mg Tablet,Delayed Release (Dr/Ec) 40 mg PO DAILY insulin lispro 100 unit/mL Solution 30 unit SUBCUT TID polyethylene glycol 3350 [Miralax] 17 gram/dose Powder 17 g PO DAILY sertraline [Zoloft] 50 mg Tablet 75 mg PO BEDTIME brimonidine [Alphagan P] 0.1 % Drops 1 drp OPHTHALMIC (EYE) BID sodium chloride 1,000 mg Tablet,Soluble 1,000 mg PO DAILY Preparation H Maximum Strength 0.25-1 % Cream 1 applic MT BID PRN (Reason: Hemorrhoids) insulin glargine [Lantus Solostar U-100 Insulin] 100 unit/mL (3 mL) Insulin Pen 72 unit SUBCUT BEDTIME latanoprost (PF) 0.005 % Dropperette 1 drp ophthalmic (eye) BEDTIME hydrocodone-acetaminophen 5-325 mg tablet 1 tab PO .Q4-6H PRN (Reason: pain) metoprolol succinate [Toprol XL] 25 mg tablet extended release 24 hr 25 mg PO DAILY Qty: 30 0RF aspirin 325 mg capsule 325 mg PO DAILY Qty: 30 0RF Discharge Orders: Discharge ED (Routine); Ordered 02/25/25 Ordered By: Sydni Bain Referrals: Chelita Miller MD [Referring, Internal Medicine] Discharge Diet: Advance as tolerated Discharge Activity: Resume usual activity Patient Instructions: Heart Failure (ED) Print Language: Armenian Coding Level of Care Code ED Tissue Technologist for Radha Javed
[2025-02-25 11:41] LABS: Hematocrit 34.8 % (36-47); Hemoglobin 10.30 g/dL (11.27-16.99); Mean Corpuscular HGB Conc 29.6 g/dL (30-55); Mean Corpuscular Hemoglobin 26.4 pg (27-33); Mean Corpuscular Volume 89.2 fl (85-98); Nucleated Red Blood Cells % 0 %; Platelet Count 404 10^3/cmm (157-399); Red Blood Count 3.90 10^6/uL (3.85-5.65); White Blood Count 8.74 10^3/uL (3.29-11.43)
[2025-02-25 12:01] LABS: Alanine Aminotransferase 15 U/L (0-33); Albumin Level 3.8 g/dL (3.5-5.2); Alkaline Phosphatase 112 U/L (35-105); Anion Gap 15.4 (5-19); Aspartate Amino Transferase 16 U/L (0-32); Blood Urea Nitrogen 18 mg/dL (8-23); Calcium 8.7 mg/dL (8.5-10.5); Carbon Dioxide 30 mmol/L (22-29); Chloride 98 mmol/L (98-107); Creatinine Clr Calc Pharmacy 49.1414; Globulin 3.7 g/dL (1.3-4.6); Glucose 269 mg/dL (65-115); Osmolality Calculated 299 mOsm/kg (285-295); Potassium 4.4 mmol/L (3.5-5.1); Sodium 139 mmol/L (136-145); Total Protein 7.5 g/dL (6.6-8.7)
[2025-02-25 12:16] VITALS: BP 118/64; PULSE 74; RESP 22; O2SAT 99
[2025-02-25 12:23] VITALS: BP 118/64; PULSE 68; O2SAT 99
== END 2025-02-25 13:23 | disposition home or self-care (01) ==
PROVIDERS: Emergency Provider Emergency Medicine; PCP Internal Medicine
DX: I50.9 Heart failure, unspecified (principal); Z79.82 Long term (current) use of aspirin
CPT/HCPCS: 71045; 80053; 85025; 99284